=== PATIENT | female | born 1965 | race Caucasian/White ===

== ENCOUNTER 2024-01-10 00:31 | Day surgery (SDC) | payer OTHER, BC, SELFPAY ==
[2024-01-08 14:03] VITALS: BMI 37.5
--- NOTE | 2024-01-08 14:10 | PC.NURSE ---
Report to the Outpatient Waiting Room, entrance under the green pavilion located off [facility], at time 1030 on date 01/10/24. Planned Procedure Time: 1230. Time changes happen often and if your time is changed the preop area will call you the afternoon before. - You and your visitor will be asked to self-screen and do not enter if you have any COVID symptoms. - A mask is optional within the hospital at this time. Patients may have clear liquids (water, carbonated beverages, clear teas, apple juice) until 3 hours prior to surgery with a maximum of 20 ounces. - No food from midnight until time of surgery Take the following medications with a SIP of water the morning of surgery: LEVOTHYROXINE DO NOT STOP ANY OF YOUR OTHER PRESCRIPTION MEDICATIONS PRIOR TO SURGERY ?EXCEPT THE FOLLOWING Medications to discontinue per physician: TORADOL Date to take last dose: PER DR. BURTON Please no make-up, nail thai, hairspray, perfume, deodorant, or body powder the day of surgery. No jewelry (including any body piercings) or valuables the day of surgery, leave them at home. Please take a shower or bath the night before, or the morning of, surgery with an antibacterial soap. Wear comfortable, loose fitting clothing. - Jewelry must be removed prior to entering the operating room. Rings and piercings that are not removed may be cut off. - The hospital will not accept responsibility for valuables. - Please leave all valuables, including medications, at home the day of surgery. If you are going home after surgery, a licensed truck driver must drive you home. - NO public transportation without another adult if you receive anesthesia. - We recommend that an adult stay with you for 24 hours following discharge. - We also recommend that you do not drive, make important decision, drink alcoholic beverages, or take any drugs that were not prescribed by your health care provider for at least 24 hours after your discharge time. Follow any additional instructions given to you from your surgeon. If you or anyone in your household have experienced Covid symptoms in the past week, please notify your surgeon or the nurse liaison at the phone number below for possible testing. Telephone instructions given to PT - TRACY and asked if any additional questions and then verbalized understanding. Patient advised to call surgeon office or pre surgery nurse liaison [phone] if any additional questions.
[2024-01-10] VITALS (7 sets, daily range): BP systolic 106–136; BP diastolic 69–99; PULSE 65–77; RESP 10–16; TEMP 36.2–36.6; O2SAT 99–100
--- NOTE | ~2024-01-10 | XR_ITS ---
XR retrograde pyelogram RT Indication: Right stone extraction TECHNIQUE: Fluoroscopy used during right stone extraction performed by [Petar Marcelo MD] o n 01/10/2024. 40 seconds of fluoroscopy time with 56 fluoroscopic images captured. FINDINGS: Correlate with procedure note. IMPRESSION: Fluoroscopy used during right stone extraction. Please refer to procedural note. Reviewed, dictated and finalized at location A. IMPRESSION: Fluoroscopy used during right stone extraction. Please refer to pro cedural note.
--- NOTE | 2024-01-10 06:29 | WPDHPUPDATE1 ---
History and Physical Update Update Date/Time: 01/10/24 06:29 History and Physical has been reviewed, including an updated exam of the patient. There are NO changes in the patient's condition. Risks, benefits, and alternatives have been discussed and questions answered. Patient agrees to proceed with procedure.
--- NOTE | 2024-01-10 10:59 | ECG_ITS ---
SEE SCANNED COPY FOR CONFIRMED REPORT MTDD
[2024-01-10] MEDS: LACTATED RINGERS 1,000 ML 30 ML IV CONT ×2 (11:12→13:37)
--- NOTE | 2024-01-10 11:21 | P.PNAN_ITS ---
Anes - Initial Pre Proc Eval Procedure: Operation Date: 01/10/24 12:30 Proposed Procedures p Cystoscopy, Right Ureteroscopy, Right Stone Extraction, Possible Right Retrograde Pyelogram, Possible Right Stent Placement, Possible Holmium Laser Lithotripsy - Petar Marcelo MD Date/Time: 01/10/24 11:21 Surgeon: Petar Marcelo MD Pre Op Diagnosis: Right Ureteral Stone Patient Data Age: 58 Gender: F Height: 1.63 m Weight: 99 kg Last Vital Signs Temp 97.2 F L 01/10/24 11:06 Pulse 77 01/10/24 11:06 Resp 14 01/10/24 11:06 BP 136/75 01/10/24 11:06 Pulse Ox 99 01/10/24 11:06 O2 Del Method Room Air 01/10/24 11:06 Allergies Allergy/AdvReac Type Severity Reaction Status Date / Time hydrocodone AdvReac Nausea Verified 01/10/24 11:13 oxycodone AdvReac Nausea Verified 01/10/24 11:13 Home Medications Medication Instructions Recorded Confirmed Type ketorolac 10 mg tablet 10 mg PO PRN PRN Pain 01/08/24 01/08/24 History levothyroxine 25 mcg tablet 25 mcg PO DAILY 01/08/24 01/10/24 History lisinopril 10 mg tablet 10 mg PO DAILY 01/08/24 01/08/24 History oxybutynin chloride 5 mg 5 mg PO DAILY 01/08/24 01/08/24 History tablet,extended release 24 hr tamsulosin 0.4 mg capsule 0.4 mg PO DAILY 01/08/24 01/08/24 History tirzepatide (weight loss) 5 mg/0.5 5 mg subcut WEEKLY 01/08/24 01/08/24 History mL subcutaneous pen injector (Zepbound) Patient hx anesthesia problems: none Family hx anesthesia problems: none Results Review: All pre-operative results and documents have been reviewed as part of the pre- operative evaluation. [facility] Family History Family History (Updated 07/10/16 @ 15:16 by DOCTOR UNKNOWN) Sibling Family history of pancreatic cancer Father Family history of lung cancer Social History Social History Smoking status: Never smoker Alcohol intake: current Alcohol use details: VERY RARE Substance use: never Substance use type: does not use Living arrangements: with family Spiritual care concerns: No Anes - Eval Final PreProcedure Day of Procedure 01/10/24 11:21 Patient weight: obese Heart: regular rate and rhythm Lungs: clear to auscultation Airway: Mallampati scale class II and special considerations (L upper tooth missing, R lower tooth missing. ) Neurological: alert and oriented Last oral intake: >/= 8 hours ASA classification: II Emergent: no Anesthetic plan: proceed Anesthesia type and monitoring: general LMA and standard monitoring Results Review: All pre-operative results and documents have been reviewed as part of the pre- operative evaluation. Pt has been off her GLP 1 for 8 days, no N/V, retching or early satiety reported. Informed Consent: The patient's anesthetic plan and its attendant risks and benefits were discussed with the patient/family/POA. Questions were solicited and answers provided to the satisfaction of the patient/family/POA.
--- NOTE | 2024-01-10 12:48 | W.PM.PROC2 ---
Procedure Note - Detailed Date of Procedure 01/10/24 Pre-op Diagnosis Right Ureteral Stone Post-op Diagnosis Other ( Right ureteral and right kidney stone) Procedure Performed Cystoscopy, right ureteroscopy with stone extraction, right retrograde pyelogram Surgeon Petar Marcelo MD Anesthesia General Description of Procedure patient is brought to the operative suite where she has prepped draped in routine sterile fashion while in dorsal lithotomy position after the uneventful induction of a general anesthetic. Cystoscopy was undertaken with a 19 F rigid cystoscope. Bladder neck and urethra endoscopically normal. Bladder mucosa is normal. There was no intravesical foreign body or neoplasm. A 0.035 in glidewire was advanced into her right renal pelvis and the distal ureter was dilated with an 8 F 10 F dilator. With ureteroscopy find any stones in her right ureter but there were several fragments in the bladder suggesting that the stone fractured with spontaneous passage. I removed the fragments from her bladder. I then performed flexible ureteroscopy, did a retrograde pyelogram to ensure inspection of all calices and found the 3 mm stone in her right kidney. That stone was extracted with a 1.9 F disposable stone makes it with these. Because of the ease of this manipulation I opted not to place a ureteral stent. Drains No Packing No Pathology Yes Complications No immediate complications Condition Stable
[2024-01-10] MEDS: KETOROLAC 30 MG/ML VIAL (*BKC) IV PUSH (13:21)
--- NOTE | 2024-01-10 13:26 | SUR.PHASEI ---
1255: Melodie CHUNG'Kashif BURTON IN PACU FOR TORADOL 30MG IVP X1 DOSE TO BE GIVEN IN PACU. ORDER ENTERED BY RN @ 1320 AND ADMIN IN PACU TO PT ORDERED.
== END 2024-01-10 14:43 | disposition home or self-care (01) ==
PROVIDERS: PCP Nurse Practitioner; Visit Provider Urology
PROC: (CPT 52352; principal; 2024-01-10 12:30)
DX: N20.2 Calculus of kidney with calculus of ureter (principal); I10 Essential (primary) hypertension; E66.9 Obesity, unspecified; Z68.37 Body mass index [BMI] 37.0-37.9, adult; Z79.85 Long-term (current) use of injectable non-insulin antidiabetic drugs; Z80.1 Family history of malignant neoplasm of trachea, bronchus and lung; Z80.0 Family history of malignant neoplasm of digestive organs
CPT/HCPCS: 52352; 74420; 82365; 88300; 93005; C1769; J0690; J1100; J1885; J2405; J2704; J7120; Q9966

== ENCOUNTER 2025-09-04 14:46 | Outpatient (CLI) | payer OTHER, BC, SELFPAY ==
--- NOTE | 2025-09-04 14:53 | ECG_ITS ---
Test Date: 2025-09-04 15:00:54 Measurements Intervals [place] Rate: 85 P: 187 HI: 132 QRS: 217 QRSD: 80 T: 182 QT: 342 QTc: 407 Interpretive Statements SINUS RHYTHM LIMB LEAD REVERSAL LOW QRS VOLTAGE IN PRECORDIAL LEADS BORDERLINE R WAVE PROGRESSION, ANTERIOR LEADS BORDERLINE T WAVE ABNORMALITY- INFERIOR LEADS BASELINE WANDER- V4-V5 BORDERLINE ECG No previous ECG available for comparison Electronically Signed On 09-04-2025 15:15:36 IMPROVEMENT AUDITOR by Vj Egan D.O.
== END 2025-09-04 14:47 | disposition home or self-care (01) ==
PROVIDERS: PCP Nurse Practitioner; Visit Provider Anesthesiology
DX: I10 Essential (primary) hypertension (principal); Z01.818 Encounter for other preprocedural examination; R94.31 Abnormal electrocardiogram [ECG] [EKG]
CPT/HCPCS: 93005

== ENCOUNTER 2025-09-08 03:31 | Day surgery (SDC) | payer OTHER, BC, SELFPAY ==
[2025-09-03 08:10] VITALS: BMI 38.6
--- NOTE | 2025-09-03 08:18 | SUR.PREOP ---
[facility] has started construction of its new state of the art ER which will open Spring 2026. With this, we anticipate parking may be a challenge for some our surgical patients and families. Parking spaces are limited but are available for all Surgical, obstetrics, and ER patients sharing this lot. If you arrive and find you are having a hard time finding a parking space, please note that we understand the challenges, please drive around the hospital and park near Hospital Entrance 1. When you enter this entrance, you can ask a volunteer to direct or take you back to the surgical waiting area to check in. We appreciate everyone?s understanding of these expected challenges while we build for your future. Report to the Outpatient Waiting Room, entrance under the green pavilion located off [address], at time 7:30a.m. on date 09/08/2025. Planned Procedure Time: 9:30a.m.? Time changes happen often and if your time is changed the preop area will call you the afternoon before. - You and your visitor will be asked to self-screen and do not enter if you have any COVID symptoms. Please call surgeon if you need to reschedule. - A mask is optional within the hospital at this time. Patients may have clear liquids (water, carbonated beverages, clear teas, apple juice) until 3 hours prior to surgery with a maximum of 20 ounces. - No food from midnight until time of surgery and no smoking, or chewing tobacco (or any form of nicotine). No chewing gum, candy or mints. Take only the following medications with a SIP of water on the morning of surgery: NONE DO NOT STOP ANY OF YOUR OTHER PRESCRIPTION MEDICATIONS PRIOR TO SURGERY EXCEPT THE FOLLOWING Hold all vitamins and supplements for 3 days per anesthesiologist. Medications to discontinue per physician: NONE Date to take last dose: N/A Please no make-up, nail greenlandic, hairspray, perfume, deodorant, or body powder the day of surgery.? No jewelry (including any body piercings) or valuables the day of surgery, leave them at home.? Please take a shower or bath the night before, or the morning of, surgery with an antibacterial soap.? Wear comfortable, loose fitting clothing.? Children are encouraged to wear pajamas. - Jewelry must be removed prior to entering the operating room.? Rings and piercings that are not removed may be cut off. - The hospital will not accept responsibility for valuables.? - Please leave all valuables, including medications, at home the day of surgery. If you are going home after surgery, a licensed garbage truck driver must drive you home.? - NO public transportation without another adult if you receive anesthesia. - We recommend that an adult stay with you for 24 hours following discharge. - We also recommend that you do not drive, make important decision, drink alcoholic beverages, or take any drugs that were not prescribed by your health care provider for at least 24 hours after your discharge time. For Pediatric surgeries, we recommend two adults accompany the child home. Follow any additional instructions given to you from your surgeon. Telephone instructions given to Paz Engle and asked if any additional questions and then verbalized understanding. Patient advised to call surgeon office or pre surgery nurse liaison [phone] if any additional questions.
[2025-09-08] VITALS (8 sets, daily range): BP systolic 113–138; BP diastolic 76–88; PULSE 63–92; RESP 12–20; TEMP 36.2–36.3; O2SAT 96–100; BMI 39.6
--- NOTE | ~2025-09-08 | XR_ITS ---
EXAM/PROCEDURE: XR retrograde pyelo w/stent BI HISTORY: BILATERAL RETRO/STENT COMPARISON: None available. TECHNIQUE: Fluoroscopic spot images for pain service. Fluoroscopy time: 42.1 seconds Dose: 32.10 mGy REPORT: Bilateral ureteral stents present with retrograde pyelography performed. IMPRESSION: Fluoroscopic guided imaging. No radiologist present. See also procedure/operative notes for complete evaluation. Reviewed, dictated and finalized at location A. ANICAL MAINTENANCE IMPRESSION: Fluoroscopic guided imaging. No radiologist present. See also proce dure/operative notes for complete evaluation.
--- OUTSIDE RECORDS SUMMARY | 2025-09-08 03:36 | XMS_ITS | Clinical Summary ---
Author Organization [facility] Address [address] [place] [address] Care Team Providers Care Gasoline Tractor Operator Name Role Phone Russell Bianchi MD Primary Care Provider Source Comments [facility],non-owned Affiliates and Associated Physician Practices is amultiple site organization consisting of ambulatory clinics and hospital sitesin [place], [place], [place] and [place]. This disclosure is being madepursuant to the Care Everywhere program and may not contain all information available regarding this patient. 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 Gender Identity Not on file Sexual Orientation Not on file Plan of Treatment Health Maintenance Due Date Last Done Comments COLOGUARD (AGES 45-75) - COL ON CA SCREENING 1963 COLON MONITORING 1963 COLONOSCOPY - COLON CA SCREENING 1963 CT COLONOGRAPHY - COLON CA SCREENING 1963 Colorectal Cancer Screening 1963 FIT - COLON CA SCREENING 1963 FLEX SIG - COLON CA SCREENING 1963 LIPID TESTING 1963 MAMMOGRAM 1963 HIV SCREENING 1978 HEPATITIS C SCREENING 03/16/1981 DTAP/TDAP/TD VACCINES (1 - Tdap) 1982 Cervical Cancer Screening 1984 PAP SMEAR 1984 PAP with HPV 1993 PNEUMOCOCCAL VACCINE 50+ (1 of 1 - PCV) 2013 ZOSTER VACCINE (1 of 2) 2013 DEPRESSION SCREENING 10/01/2024 COVID-19 VACCINE ( - 2024-2 6 season) 2025 INFLUENZA VACCINE (#1) 2025 Respiratory Syncytial Virus (RSV) Vaccine Pt: or over 60 yrs (1 - 1-dose 75+ series) 2038 HEPATITIS B VACCINE Aged Out No longe r eligible based on patient's age to complete this topic HIB VACCINE Aged Out No longer eligi ble based on patient's age to complete this topic HPV VACCINE Aged Out No longer eligi ble based on patient's age to complete this topic MENINGOCOCCAL (Group B) VACC INE SHARED DECISION-MAKING Aged Out No longer eligibl e based on patient's age to complete this topic MENINGOCOCCAL GROUPS A/C/Y/W VACCINE Aged Out No longer eligible b ased on patient's age to complete this topic Insurance [facility], [facility] * Guarantor: PAZ RAMIREZ Account Type Relation to Patient Date of Phone Billing Address Personal/Family Spouse [facility] * Guarantor: JAMESPAZ Account Type Relation to Patient Date of Phone Billing Address Personal/Family Spouse [facility] Member Subscriber Plan / Payer (Ef fective for All Dates) Name:Paz Ramirez Cole Member ID:Not on file Relation to Subscriber:Self Name:Paz Ramirez Subscriber ID:Not on file Payer ID:Not on file Type:PPO Address: [facility] [id number] [place] [id number] [place] [address] Care Teams Gasoline Tractor Operator Relationship Specialty Start Date End Date Russell Bianchi MD [address] [place] [address] PCP - General 07/07/21
--- OUTSIDE RECORDS SUMMARY | 2025-09-08 03:36 | XMS_ITS | Encounter Summary ---
Author Organization [facility] Address [address] [place] [address] Care Team Providers Care Clinical Program Director Name Role Phone Russell Bianchi MD Primary Care Provider [phone] Encounter Details Date Type Department Care Team (Late st Contact Info) Description 08/19/2024 Lab Requisition [facility]erm[facility] Lab [address] [place] [address] Janice Gomez DO [address] [facility] [address] [place] [address] Social History Tobacco Use Types Packs/Day Years Used Date Smoking Tobacco: Never Assessed Comments Unknown Sex and Gender Information Value Date Recorded Sex Assigned at Not on file Legal 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 Gender Identity Not on file Sexual Orientation Not on file documented as of this encounter Plan of Treatment Not on file documented as of this encounter Procedures Procedure Name Priority Date/Time Associated Diagnosis Comments DERMATOPATHOLOGY Routine 08/19/2024 2:20 PM PLUMBING INSTRUCTOR documented in this encounter Results * DERMATOPATHOLOGY (08/19/2024 2:20 PM PLUMBING INSTRUCTOR) Case Report Dermatopathology Report Case: [id number] Authorizing Provider: Janice Gomez DO Collected: 08/19/2024 02:20 PM Ordering Location: [facility] - Received: 08/20/2024 10:58 AM DermPath Lab Pathologist: Arely Drew MD Specimen: Skin, right cheek 4 5:14 PM PLUMBING INSTRUCTOR DERMATOPATHOLOGY LABORATORY Final Diagnosis Specimen A. SKIN, right cheek: ANGIOFIBROMA (FIBROUS PAPULE) (D21.0) ACTINIC KERATOSIS, FOCAL CHANGES(L57.0) (see microscopic description) 4 5:14 PM [facility] at [address] PLUMBING INSTRUCTOR Clinical History R/O BCC 4 5:14 PM [facility]ORY Gross Description Specimen A: Received is one formalin filled container labeled with the patient's name and designated right cheek. The specimen consists of a shave biopsy measuring 2x2x1 mm. Jar 0. 4 5:14 PM [facility] DER[facility]ORY Microscopic Description Specimen A. SKIN, right cheek: This dome-shaped lesion contains dilated blood vessels, coarse collagen bundles, and stellate fibroblasts. There is also focal parakeratosis and the lower half of the epidermis shows disorderly maturation of keratinocytes with nuclear pleomorphism. The hematoxylin and eosin stain is reviewed; immunohistochemical stains are performed to further characterize this process. The dermal spindle cells are positive for Factor XIIIa and negative for SOX10. 5:14 PM [facility] DER[facility] LAB[facility]ATORY Disclaimer An external and internal positive and negative controls are appropriate for the histochemical, immunohistochemical and immunofluorescence stain(s) in this case (if any), except where stated explicitly. The performance characteristics of the stain(s) cited in this report were developed and its performance characteristic determined by the Dermatopathology Laboratory at [facility], directed by Dr. Reji Rice. These tests need not be, and therefore are not, approved by the [place] Food and Drug Administration. The tests are used for clinical purposes. Billing Codes Specimen Charges Stain Charges 92435 1 03133 [id number] 1 1 4 5:14 PM [facility] DER[facility] LAB[facility]ATORY Embedded Images 4 5:14 PM [facility] D[facility]ORY Pathology/Cytolo gy TISSUE SPECIMEN FROM SKIN / Unknown 08/19/2024 2:20 PM PLUMBING INSTRUCTOR 08/20/2024 10:58 AM PLUMBING INSTRUCTOR us Janice Gomez DO LAB - PATHOLOGY/CYTOLOGY ORDERABLES Final Result DERMATOPATHOLOGY LABORATORY [facility] Department of Dermatology [facility] Specialized [facility] [phone] documented in this encounter Visit Diagnoses Not on filedocumented in this encounter Care Teams Clinical Program Director Relationship Specialty Start Date End Date Russell Bianchi MD [address] [place] [address] PCP - General 07/07/21 documented as of this encounter
--- NOTE | 2025-09-08 08:31 | WPDANESEPPF ---
Anes - Initial Pre Proc Eval Procedure: Operation Date: 09/08/25 09:30 Proposed Procedures p Cystoscopy Bilateral Retrograde Pyelogram, Bilateral Ureteral Stent Placement - Shady Colby MD Date/Time: 09/08/25 08:31 Surgeon: Shady Colby MD Pre Op Diagnosis: Calculus of kidney Patient Data Age: 60 Gender: F Height: 1.63 m Weight: 104.8 kg Last Vital Signs Temp 36.2 C L 09/08/25 07:30 Pulse 92 09/08/25 07:30 BP 138/88 09/08/25 07:30 Pulse Ox 100 09/08/25 07:30 O2 Del Method Room Air 09/08/25 07:30 Allergies Allergy/AdvReac Type Severity Reaction Status Date / Time hydrocodone AdvReac Nausea Verified 09/08/25 07:50 oxycodone AdvReac Nausea Verified 09/08/25 07:50 Home Medications ?Medication ?Instructions ?Recorded ?Confirmed ?Type lisinopril 10 mg tablet 5 mg PO DAILY 01/08/24 09/03/25 History oxybutynin chloride 5 mg 5 mg PO DAILY 01/08/24 09/03/25 History tablet,extended release 24 hr Patient hx anesthesia problems: none Family hx anesthesia problems: none Results Review: All pre-operative results and documents have been reviewed as part of the pre-operative evaluation. [facility] Past Medical History Medical History (Updated 09/08/25 @ 08:30 by Mamadou Lance DO) Hypertension AAA (abdominal aortic aneurysm) Surgical History Surgical History (Updated 09/08/25 @ 08:30 by Mamadou Lance DO) History of hysterectomy History of total bilateral knee replacement Family History Family History (Updated 07/10/16 @ 15:16 by DOCTOR UNKNOWN) Sibling Family history of pancreatic cancer Father Family history of lung cancer Social History Social History Smoking status: Never smoker Alcohol intake: current Alcohol use details: VERY RARE Substance use: never Substance use type: does not use Living arrangements: with family Spiritual care concerns: No Anes - Eval Final PreProcedure Day of Procedure 09/08/25 08:31 Patient weight: obese Heart: regular rate and rhythm Lungs: clear to auscultation Airway: Mallampati scale class II Neurological: alert and oriented Last oral intake: >/= 8 hours ASA classification: III Emergent: no Anesthetic plan: proceed Anesthesia type and monitoring: general LMA and standard monitoring Results Review: All pre-operative results and documents have been reviewed as part of the pre-operative evaluation. Informed Consent: The patient's anesthetic plan and its attendant risks and benefits were discussed with the patient/family/POA. Questions were solicited and answers provided to the satisfaction of the patient/family/POA.
--- NOTE | 2025-09-08 09:08 | WPDHPUPDATE1 ---
History and Physical Update Update Date/Time: 09/08/25 09:08 History and Physical has been reviewed, including an updated exam of the patient. There are NO changes in the patient's condition. Risks, benefits, and alternatives have been discussed and questions answered. Patient agrees to proceed with procedure.
--- NOTE | 2025-09-08 09:08 | PM.HPGS ---
History of Present Illness History of Present Illness Consent: Risks, benefits, and alternatives have been discussed and questions answered. Patient agrees to proceed with procedure. Chief complaint: Calculus of kidney Narrative: Paz Engle is a 60 year old female with history of urolithiasis who was found on recent imaging to have significant kidney stone burden bilaterally. She had undergone a discussion of management options in the Urology Clinic and had elected to proceed with a staged endoscopic approach to treat her kidney stones. She presents today for bilateral ureteral stent placement with plans to follow-up in the upcoming weeks for definitive endoscopic management of her kidney stones. The patient denies any changes past her baseline is ready for the procedure today. Review of Systems Review of Systems: Constitutional: No fevers or chills Eyes: No changes in vision HENT: No hearing loss Cardiovascular: No chest pain or palpitations Respiratory: No shortness of breath, cough, wheezing GI: No abdominal pain, nausea, or vomiting : No dysuria or difficulty urinating Heme: No easy bruising or bleeding Skin: No rash or itching MSK: No myalgias or joint pain Psych: No hallucinations Neuro: No lateralized numbness or tingling PMFSH Past Medical History Medical History (Updated 09/08/25 @ 09:10 by Shady Colby MD) Hypertension AAA (abdominal aortic aneurysm) Surgical History Surgical History (Updated 09/08/25 @ 08:30 by Mamadou Lance DO) History of hysterectomy History of total bilateral knee replacement Family History Family History (Updated 07/10/16 @ 15:16 by DOCTOR UNKNOWN) Sibling Family history of pancreatic cancer Father Family history of lung cancer Social History Social History Smoking status: Never smoker Alcohol intake: current Alcohol use details: VERY RARE Substance use: never Substance use type: does not use Living arrangements: with family Spiritual care concerns: No Meds Home Medications and Allergies Home Medications ?Medication ?Instructions ?Recorded ?Confirmed ?Type lisinopril 10 mg tablet 5 mg PO DAILY 01/08/24 09/03/25 History oxybutynin chloride 5 mg 5 mg PO DAILY 01/08/24 09/03/25 History tablet,extended release 24 hr Allergies Allergy/AdvReac Type Severity Reaction Status Date / Time hydrocodone AdvReac Nausea Verified 09/08/25 07:50 oxycodone AdvReac Nausea Verified 09/08/25 07:50 Vital Signs Vital Signs - 24 hr 09/08/25 07:30 Temperature 36.2 C L Pulse Rate 92 Blood Pressure 138/88 Pulse Oximetry 100 Oxygen Delivery Room Air Exam Narrative: General: Alert, no acute distress Head: Normocephalic, atraumatic Eyes: Extraocular movements intact Neck: No JVD, trachea midline Respiratory: Symmetric chest rise, nonlabored breathing on room air CV: Normal rate, adequate peripheral perfusion Abdomen: Soft, nontender, nondistended Skin: Warm/dry Extremities: No peripheral edema, no cyanosis Neuro: No focal deficits Psych: Answers questions appropriately, appropriate mood Assessment and Plan Assessment and plan (1) Nephrolithiasis: Code(s): N20.0 - Calculus of kidney Status: Acute Assessment and Plan: 60yF with large kidney stone burden in both kidneys - To OR for cystoscopy, bilateral retrograde pyelogram, bilateral ureteral stent placement - Risks, benefits, alternatives reviewed with the patient. The patient is amenable to proceed. - Anticipate discharge home thereafter
[2025-09-08] MEDS: ceFAZolin 2 GM in SODIUM CHLORIDE 0.9% IV 50 ML 100 ML IVPB (09:16)
--- NOTE | 2025-09-08 09:41 | P.OP_ITS ---
Procedure Note - Detailed Date of Procedure 09/08/25 Pre-op Diagnosis bilateral nephrolithiasis Post-op Diagnosis Same Procedure Performed 1. Cystoscopy 2. Bilateral retrograde pyelograms with intraoperative interpretation 3. Bilateral ureteral stent placement Surgeon Shady Colby MD Anesthesia General Findings 1. Cystourethroscopy revealed a cystocele with bilateral orthotopic ureteral orifices. There were no suspicious lesions, tumors, active bleeding, or stones in the lower urinary tract 2. Left retrograde pyelogram using a 50 50 mixture of contrast and saline showed a crisp well-delineated collecting system with scattered filling defects in the kidney without contrast extravasation 3. Right retrograde pyelogram using a 50 50 mixture of contrast and saline showed a crisp well-delineated collecting system with scattered filling defects in the kidney without contrast extravasation 4. Successful bilateral ureteral stent placement Description of Procedure After informed consent was obtained, the patient was brought back to the operat ing theatre and placed in the supine position on the operating table. Pre- operative antibiotics were confirmed to have been administered. Anesthesia was induced. The patient was moved into the dorsal lithotomy position and prepped and draped in the standard sterile fashion for an endoscopic case. All pressure points were padded. Bilateral sequential compression devices were on and noted to be functioning. A formal timeout was performed with Dr. Colby in attendance to confirm the correct patient, site/laterality, and procedure and all were in agreement to proceed. To begin with, I atraumatically advanced a lubricated 22-Trinidadian rigid cystoscope transurethrally into the patient's bladder. Pancystoscopy was performed with findings as noted above. Attention was then turned to the left ureteral orifice, which was gently cannulated with a Sensor wire which was advanced up to the level of the left distal ureter under fluoroscopy. Over top of the wire, a 5- Trinidadian open ended catheter was advanced to the level of the distal ureter. The wire was removed keeping the open-ended catheter in place and a left retrograde pyelogram was performed using a 50:50 mixture of saline and contrast with findings as noted above. The wire was then replaced through the open-ended catheter and was advanced up to the level of the left kidney under fluoroscopy. Afterwards, the open-ended catheter was removed in Seldinger fashion, leaving the wire in place. Over top of the wire, a 6-Trinidadian x 24 cm JJ stent was advanced and the pusher was used to deploy the stent in place, confirming an adequate proximal curl in the left kidney under fluoroscopy and a good distal curl in the bladder under both fluoroscopic and direct cystoscopic vision. Next, I performed a right-sided retrograde pyelogram and right ureteral stent placement in the exact same fashion as the left hand side. Please see above for right-sided intraoperative retrograde pyelogram findings. The patient's bladder was then emptied and the cystoscope was removed, essentially concluding the case. At the conclusion of the case all sponge, instrument, and sharp counts were correct x 2. The patient was then awoken from anesthesia and taken to the recovery room in stable condition. The patient tolerated the procedure well and there were no immediate complications noted. disposition: The patient will be monitored in the PACU and discharge home was clearly PACU protocol. She will follow-up in the upcoming weeks for definitive endoscopic treatment of her kidney stones. Patient's was provided with an update following the procedure and all questions were answered to his satisfaction at the conclusion of our discussion.
[2025-09-08] MEDS: LACTATED RINGERS 1,000 ML 30 ML IV CONT (09:45)
[2025-09-08] MEDS: traMADol HCL (*CRX) 50 MG TABLET PO (10:52)
== END 2025-09-08 11:24 | disposition home or self-care (01) ==
PROVIDERS: PCP Nurse Practitioner; Visit Provider Urology
PROC: (CPT 52352; principal; 2025-09-08 09:30)
DX: N20.0 Calculus of kidney (principal); N81.10 Cystocele, unspecified; I10 Essential (primary) hypertension; E66.9 Obesity, unspecified; Z68.39 Body mass index [BMI] 39.0-39.9, adult; Z98.890 Other specified postprocedural states; Z86.79 Personal history of other diseases of the circulatory system; Z80.1 Family history of malignant neoplasm of trachea, bronchus and lung; Z80.0 Family history of malignant neoplasm of digestive organs
CPT/HCPCS: 52332; 74420; J0690; A9270; C1758; C1769; C2617; J1100; J2003; J2250; J2405; J2704; J3010; J7120; Q9966

== ENCOUNTER 2025-09-29 01:10 | Day surgery (SDC) | payer OTHER, BC, SELFPAY ==
[2025-09-22 08:00] VITALS: BMI 38.6
--- NOTE | 2025-09-22 08:15 | PC.NURSE ---
[facility] has started construction of its new state of the art ER which will open Spring 2026. With this, we anticipate parking may be a challenge for some our surgical patients and families. Parking spaces are limited but are available for all Surgical, obstetrics, and ER patients sharing this lot. If you arrive and find you are having a hard time finding a parking space, please note that we understand the challenges, please drive around the hospital and park near Hospital Entrance 1. When you enter this entrance, you can ask a volunteer to direct or take you back to the surgical waiting area to check in. We appreciate everyone?s understanding of these expected challenges while we build for your future. Report to the Outpatient Waiting Room, entrance under the green pavilion located off [address], at time 0900 on date 09/29/25. Planned Procedure Time: 1100.? Time changes happen often and if your time is changed the preop area will call you the afternoon before. - You and your visitor will be asked to self-screen and do not enter if you have any COVID symptoms. Please call surgeon if you need to reschedule. - A mask is optional within the hospital at this time. Patients may have clear liquids (water, carbonated beverages, clear teas, apple juice) until 3 hours prior to surgery with a maximum of 20 ounces. - No food from midnight until time of surgery and no smoking, or chewing tobacco (or any form of nicotine). No chewing gum, candy or mints. - Infants may have breast milk until 4 hours before surgery, formula 6 hours prior to surgery. - Children will be allowed to drink immediately following surgery.? If applicable, please bring a bottle or sippy cup to assist with drinking. Juice, water, soda, and popsicles are readily available.? For infants on formula, please bring formula the day of surgery.? Pacifiers are allowed. Take only the following medications with a SIP of water on the morning of surgery: MAY TAKE PYRIDIUM IF SHE WANTS DO NOT STOP ANY OF YOUR OTHER PRESCRIPTION MEDICATIONS PRIOR TO SURGERY EXCEPT THE FOLLOWING Hold all vitamins and supplements for 3 days per anesthesiologist. Medications to discontinue per physician N/A Date to take last dose N/A Please no make-up, nail gambian, hairspray, perfume, deodorant, or body powder the day of surgery.? No jewelry (including any body piercings) or valuables the day of surgery, leave them at home.? Please take a shower or bath the night before, or the morning of, surgery with an antibacterial soap.? Wear comfortable, loose fitting clothing.? Children are encouraged to wear pajamas. - Jewelry must be removed prior to entering the operating room.? Rings and piercings that are not removed may be cut off. - The hospital will not accept responsibility for valuables.? - Please leave all valuables, including medications, at home the day of surgery. If you are going home after surgery, a licensed class a truck driver must drive you home.? - NO public transportation without another adult if you receive anesthesia. - We recommend that an adult stay with you for 24 hours following discharge. - We also recommend that you do not drive, make important decision, drink alcoholic beverages, or take any drugs that were not prescribed by your health care provider for at least 24 hours after your discharge time. For Pediatric surgeries, we recommend two adults accompany the child home. Follow any additional instructions given to you from your surgeon. Telephone instructions given to TRACY RAMIREZ and asked if any additional questions and then verbalized understanding. Patient advised to call surgeon office or pre surgery nurse liaison [phone] if any additional questions.
[2025-09-29] VITALS (9 sets, daily range): BP systolic 123–158; BP diastolic 85–103; PULSE 74–97; RESP 12–17; TEMP 36.2; O2SAT 94–100
--- NOTE | ~2025-09-29 | XR_ITS ---
EXAMINATION: XR retrograde pyelo w/stent BI DATE: 09/29/2025 12:03 INDICATION: Bilateral internal ureteral stent placement TECHNIQUE: Fluoroscopic images from a bilateral internal ureteral stent placement are submitted for review. 64 seconds of fluoroscopy time. FINDINGS: There are bilateral double-J internal ureteral stent projecting in expected position, with proximal [place] loop at the level of the renal pelvis and distal loop in the pelvis within the bladder lumen. IMPRESSION: 1. Bilateral internal ureteral stent placement. Please refer to real-time procedural findings for details. Reviewed, dictated and finalized at location O. [facility] IMPRESSION: 1. Bilateral internal ureteral stent placement. Please refer to real-time pro cedural findings for details.
--- OUTSIDE RECORDS SUMMARY | 2025-09-29 01:16 | XMS_ITS | Encounter Summary ---
Author Organization [facility] Address [facility] [place] [address] Care Team Providers Care Four Slide Operator Name Role Phone Gaurav Arango MD Unavailable [phone] Jacinta Del Rosario Primary Care Provider [phone] Mauricio Wood MD Unavailable [phone] Encounter Details Date Type Department Care Team (Late st Contact Info) Description 06/21/2022 Prêt d'Uniont Message Enc [facility] [address] [place] [address] Manoj Merlos MD [address] [place] [address] ANIVAL SLADE [id number] Urine culture Social History Tobacco Use Types Packs/Day Years Used Date Smoking Tobacco: Never Smokeless Tobacco: Never Comments:Never Smoked Alcohol Use Standard Drinks/Week Comments Yes 0 (1 standard drink = 0.6 oz pure alcohol) occasionally. less than 1 drink a week PHQ-2 Answer Date Recorded PHQ-2 Score - If the patient scores above 3, please move on to questions 3-9 0 05/25/2022 Comments No Sex and Gender Information Value Date Recorded Sex Assigned at Female 10/14/2024 3:51 PM HEALTH INSURANCE SPECIALIST Legal Sex Female 5:51 PM CDT Gender Identity Female 09/23/2021 9:05 AM HEALTH INSURANCE SPECIALIST Sexual Orientation Straight 09/23/2021 9: 05 AM HEALTH INSURANCE SPECIALIST COVID-19 Exposure Response Date Recorded In the last 10 days, have yo u been in contact with someone who was confirmed or suspected to have Coronavirus/COVID-19? No / Unsure 06/23/2022 10:55 AM CDT documented as of this encounter Functional Status * RETIRED Are you deaf or do you have serious difficulty hearing Answer Date of Assessment Author Status No 12/24/2018 5:26 PM CDT Activ e * RETIRED Are you blind or do you have serious difficulty seeing, even when wearing glasses? Answer Date of Assessment Author Status No 12/24/2018 5:26 PM CDT Activ e * Do you have serious difficulty walking or climbing stairs? Answer Date of Assessment Author Status No 12/24/2018 5:26 PM CDT Jenny Fitch RN Active * Do you have difficulty dressing or bathing? Answer Date of Assessment Author Status No 12/24/2018 5:26 PM CDT Jenny Fitch RN Active * Because of a physical, mental, or emotional condition, do you have difficulty doing errands alone such as visiting a doctor's office or shopping? Answer Date of Assessment Author Status No 12/24/2018 5:26 PM CDT Jenny Fitch RN Active documented as of this encounter Mental Status * Because of a physical, mental, or emotional condition, do you have serious difficulty concentrating, remembering, or making decisions? Answer Entry Date Author Status No 12/24/2018 5:26 PM PACHECOT Jenny Fitch RN Active documented in this encounter Progress Notes * Raven Cotton RN - 06/22/2022 11:57 AM CDT Forwarded to Dr. Merlos review UC results and advise. * Raven Cotton RN - 06/22/2022 11:56 AM CDTFrom: Paz Engle To: Dr. Manoj Merlos Sent: 06/21/2022 8:48 AM CDT Subject: Urine culture I can come in today to do a urine cath if you want me to. You had that first culture back on 06/14 and waited till 06/20 at 4pm to call and let me know to repeat it I could of done it when you got it back then the nurse thought my surgery was 06/29 I said no it's 06/23 the is stent removal she said oh now my surgery may be cancelled I'm hurting . documented in this encounter Plan of Treatment Upcoming Encounters Date Type Department Care Team (Late st Contact Info) Description 11/27/2025 3:30 PM HEALTH INSURANCE SPECIALIST Appointment [facility] [address] [place] [address] Mauricio Wood MD [address] [address] 12/03/2025 2:30 PM HEALTH INSURANCE SPECIALIST Office Visit [facility] [place] [id number] Miryam Pelayo NP [address] [address] documented as of this encounter Visit Diagnoses Not on filedocumented in this encounter Additional Health Concerns Infection Onset Date Last Indicated Resolved Time COVID-19 Rule Out 08/28/2022 08/28/2022 08/28/2022 10:13 AM HEALTH INSURANCE SPECIALIST COVID-19 Rule Out 06/28/2023 06/28/2023 06/28/2023 9:17 AM CDT COVID-19 Rule Out 09/04/2024 09/04/2024 09/04/2024 12:21 PM HEALTH INSURANCE SPECIALIST COVID-19 Rule Out 10/27/2024 10/27/2024 10/27/2024 10:34 AM HEALTH INSURANCE SPECIALIST COVID-19 Rule Out 11/20/2024 11/20/2024 11/20/2024 9:48 AM HEALTH INSURANCE SPECIALIST Respiratory Rule Out 01/28/2025 01/28/2025 025 11:41 AM CDT Respiratory Rule Out 08/24/2025 08/24/2025 025 12:21 PM HEALTH INSURANCE SPECIALIST Assessment Noted Time PHQ-9 Depression Total Score: 0 11/15/19 8:46 AM HEALTH INSURANCE SPECIALIST documented as of this encounter Care Teams Four Slide Operator Relationship Specialty Start Date End Date Jacinta Del Rosario FNP PCP - General Nurse Practitioner Family 07/14/19 Gaurav Arango MD ORTHOPAEDIC SURGERY 12/19/18 Mauricio Wood MD [address] [address] Consulting Physician CARDIOVASCULAR DISEASE 01/05/22 documented as of this encounter
--- OUTSIDE RECORDS SUMMARY | 2025-09-29 01:16 | XMS_ITS | Encounter Summary ---
Author Organization [facility] Address [facility] [place] [address] Care Team Providers Care Tour Agent Name Role Phone Gaurav Arango MD Unavailable [phone] Jacinta Del Rosario TRAIL CONSTRUCTION WORKER Primary Care Provider Mauricio Wood MD Unavailable [phone] Encounter Details Date Type Department Care Team (Late st Contact Info) Description 09/12/2024 aroundthewayt Message [facility] [place] [address] Mauricio Wood MD [address] [address] MRI/IMAGING Social History Tobacco Use Types Packs/Day Years Used Date Smoking Tobacco: Never Smokeless Tobacco: Never Comments:Never Smoked Alcohol Use Standard Drinks/Week Comments Yes 0 (1 standard drink = 0.6 oz pure alcohol) occasionally. less than 1 drink a week PHQ-2 Answer Date Recorded Patient Health Questionnaire-2 Score 0 11/26/2023 Comments No Sex and Gender Information Value Date Recorded Sex Assigned at Female 10/14/2024 3:51 PM EDGE CUTTER Legal Sex Female 5:51 PM CDT Gender Identity Female 09/23/2021 9:05 AM EDGE CUTTER Sexual Orientation Straight 09/23/2021 9: 05 AM EDGE CUTTER documented as of this encounter Functional Status [...] Date Author Status No 12/24/2018 5:26 PM CDT Jenny Fitch RN Active documented in this encounter Plan of Treatment Upcoming Encounters Date Type Department Care Team (Late st Contact Info) Description 11/27/2025 3:30 PM EDGE CUTTER Appointment [facility] [address] [place] [address] Mauricio Wood MD [facility] [address] [place] [address] 12/03/2025 2:30 PM EDGE CUTTER Office Visit [facility] [place] [phone] Miryam Pelayo, RECREATION TECHNICIAN [id number] [place] [address] documented as of this encounter Visit Diagnoses Not on filedocumented in this encounter Additional Health Concerns Infection Onset Date Last Indicated Resolved Time COVID-19 Rule Out 10/27/2024 10/27/2024 10/27/2024 10:34 AM EDGE CUTTER COVID-19 Rule Out 11/20/2024 11/20/2024 11/20/2024 9:48 AM EDGE CUTTER Respiratory Rule Out 01/28/2025 01/28/2025 025 11:41 AM CDT Respiratory Rule Out 08/24/2025 08/24/2025 025 12:21 PM EDGE CUTTER Assessment Noted Time PHQ-9 Depression Total Score: 0 09/15/20 9:53 AM EDGE CUTTER documented as of this encounter Care Teams Tour Agent Relationship Specialty Start Date End Date Jacinta Del Rosario FNP PCP - General Nurse Practitioner Family 07/14/19 Gaurav Arango MD ORTHOPAEDIC SURGERY 12/19/18 Mauricio Wood MD [facility]. [address] [address] Consulting Physician CARDIOVASCULAR DISEASE 01/05/22 documented as of this encounter
--- OUTSIDE RECORDS SUMMARY | 2025-09-29 01:16 | XMS_ITS | Encounter Summary ---
Author Organization [facility] Address [facility] [place] [address] Care Team Providers Care Business Banking Sales Assistant Name Role Phone Gaurav Arango MD Unavailable [phone] Jacinta Del Rosario Primary Care Provider [phone] Mauricio Wood MD Unavailable [phone] Encounter Details Date Type Department Care Team (Latest Contact Info) Description 12/09/2021 Toppr Message Enc [facility] [address] [place], [place] [id number] [place] [address] [place], [place] [phone] Next week's PT appointments Social History Tobacco Use Types Packs/Day Years Used Date Smoking Tobacco: Never Smokeless Tobacco: Never Comments:Provider to litigation counsel Alcohol Use Standard Drinks/Week Comments Yes 0 (1 standard drink = 0.6 oz pure alcohol) occasionally. less than 1 drink a week PHQ-2 Answer Date Recorded PHQ-2 Score - If the patient scores above 3, please move on to questions 3-9 0 11/15/2021 Comments No Sex and Gender Information Value Date Recorded Sex Assigned at Female 10/14/2024 3:51 PM MANAGER MULTICULTURAL Legal Sex Female 5:51 PM CDT Gender Identity Female 09/23/2021 9:05 AM MANAGER MULTICULTURAL Sexual Orientation Straight 09/23/2021 9: 05 AM MANAGER MULTICULTURAL COVID-19 Exposure Response Date Recorded In the last 10 days, have yo u been in contact with someone who was confirmed or suspected to have Coronavirus/COVID-19? No / Unsure 12/12/2021 8:01 AM CDT documented as of this encounter [...] st Contact Info) Description 11/27/2025 3:30 PM MANAGER MULTICULTURAL Appointment [facility] [address] [place] [address] Mauricio Wood MD [facility] [address] [place] [address] 12/03/2025 2:30 PM MANAGER MULTICULTURAL Office Visit [facility] [address] [place] [phone] Miryam Pelayo, REGIONAL LOSS PREVENTION MANAGER [address] [address] documented as of this encounter Visit Diagnoses Not on filedocumented in this encounter Additional Health Concerns Infection Onset Date Last Indicated Resolved Time COVID-19 Rule Out 08/28/2022 08/28/2022 08/28/2022 10:13 AM MANAGER MULTICULTURAL COVID-19 Rule Out 06/28/2023 06/28/2023 06/28/2023 9:17 AM CDT COVID-19 Rule Out 09/04/2024 09/04/2024 09/04/2024 12:21 PM MANAGER MULTICULTURAL COVID-19 Rule Out 10/27/2024 10/27/2024 10/27/2024 10:34 AM MANAGER MULTICULTURAL COVID-19 Rule Out 11/20/2024 11/20/2024 11/20/2024 9:48 AM MANAGER MULTICULTURAL Respiratory Rule Out 01/28/2025 01/28/2025 025 11:41 AM CDT Respiratory Rule Out 08/24/2025 08/24/2025 025 12:21 PM MANAGER MULTICULTURAL Assessment Noted Time PHQ-9 Depression Total Score: 0 11/15/19 8:46 AM MANAGER MULTICULTURAL documented as of this encounter Care Teams Business Banking Sales Assistant Relationship Specialty Start Date End Date Jacinta Del Rosario FNP PCP - General Nurse Practitioner Family 07/14/19 Guarav Arango MD ORTHOPAEDIC SURGERY 12/19/18 Mauricio Wood MD [id number] [place] [address] Consulting Physician CARDIOVASCULAR DISEASE 01/05/22 documented as of this encounter
--- OUTSIDE RECORDS SUMMARY | 2025-09-29 01:16 | XMS_ITS | Encounter Summary ---
Author Organization [facility] Address [facility] [place] [address] Care Team Providers Care Unemployment Claims Adjudicator Name Role Phone Gaurav Arango MD Unavailable [phone] Jacinta Del Rosario Primary Care Provider Mauricio Wood MD Unavailable [phone] Encounter Details Date Type Department Care Team (Late st Contact Info) Description 03/10/[address] [place], [place] [id number] Jacinta Del Rosario FNP [facility] [address] [place], [place] [id number] Social History Tobacco Use Types Packs/Day Years Used Date Smoking Tobacco: Never Smokeless Tobacco: Never Comments:Never Smoked Alcohol Use Standard Drinks/Week Comments Yes 0 (1 standard drink = 0.6 oz pure alcohol) occasionally. less than 1 drink a week PHQ-2 Answer Date Recorded Patient Health Questionnaire-2 Score 0 10/27/2024 Comments No Sex and Gender Information Value Date Recorded Sex Assigned at Female 10/14/2024 3:51 PM TUBER MACHINE OPERATOR HELPER Legal Sex Female 5:51 PM CDT Gender Identity Female 09/23/2021 9:05 AM TUBER MACHINE OPERATOR HELPER Sexual Orientation Straight 09/23/2021 9: 05 AM TUBER MACHINE OPERATOR HELPER documented as of this encounter Functional Status [...] Assessment Author Status No 12/24/2018 5:26 PM PACHECOT Jenny Fitch RN Active * Because of [...] st Contact Info) Description 11/27/2025 3:30 PM TUBER MACHINE OPERATOR HELPER Appointment [facility] [address] [address] Mauricio Wood MD [facility] [address] [place] [address] 12/03/2025 2:30 PM TUBER MACHINE OPERATOR HELPER Office Visit [facility] [address] [place] [phone] Miryam Pelayo NP [facility] [address] [place] [address] documented as of this encounter Visit Diagnoses Not on filedocumented in this encounter Additional Health Concerns Infection Onset Date Last Indicated Resolved Time Respiratory Rule Out 08/24/2025 08/24/2025 025 12:21 PM TUBER MACHINE OPERATOR HELPER Assessment Noted Time PHQ-9 Depression Total Score: 0 09/15/20 22 9:53 AM TUBER MACHINE OPERATOR HELPER documented as of this encounter Care Teams Unemployment Claims Adjudicator Relationship Specialty Start Date End Date Jacinta Del Rosario FNP PCP - General Nurse Practitioner Family 07/14/19 Gaurav Arango MD ORTHOPAEDIC SURGERY 12/19/18 Mauricio Wood MD Three [facility] [address] [place] [address] Consulting Physician CARDIOVASCULAR DISEASE 01/05/22 documented as of this encounter
--- OUTSIDE RECORDS SUMMARY | 2025-09-29 01:16 | XMS_ITS | Clinical Summary ---
Author Organization [facility] Address [address] [place] [address] Care Team Providers Care Mandolin Repairer Name Role Phone Russell Bianchi MD Primary Care Provider Source Comments [facility],non-owned Affiliates and Associated Physician Practices is amultiple site organization consisting of ambulatory clinics and hospital sitesin [place], [place], [place] and [place]. This disclosure is being madepursuant to the Care Everywhere program and may not contain all information available regarding this patient. Last updated 18.[facility] [employer] Social History Tobacco Use Types Packs/Day Years Used Date Smoking Tobacco: Never Assessed Comments Unknown Sex and Gender Information Value Date Recorded Sex Assigned at Not on file Legal Sex Female 7:48 AM DENTAL HYGIENIST MOBILE COORDINATOR Gender Identity Not on file Sexual Orientation [...] 03/16/1981 DTAP/TDAP/TD VACCINES (1 - Tdap) 1982 PAP SMEAR 1984 PNEUMOCOCCAL VACCINE 50+ (1 of 1 - PCV) 2013 ZOSTER VACCINE (1 of 2) 2013 DEPRESSION SCREENING 10/01/2024 COVID-19 VACCINE (2024-2 6 season) 2025 INFLUENZA VACCINE (#1) 2025 [...] patient's age to complete this topic Insurance [facility] * Guarantor: PAZ RAMIREZ Account Type Relation to Patient Date of Phone Billing Address Personal/Family Spouse [facility] COUNT INCLUDES THE [facility] * Guarantor: JAMESPAZ Donohue Account Type Relation to Patient Date of Phone Billing Address Personal/Family Spouse [facility] [id number] [place] [address] Member Subscriber Plan / Payer (Ef fective 2025-Present) Name:Mahesh Ramireztamra Galvan Relation to Subscriber:Self Name:Paz Ramirez Payer ID:[id number] (NAIC) Type:PPO Address: [place] [id number] Care Teams Mandolin Repairer Relationship Specialty Start Date End Date Russell Bianchi MD [address] [place] [address] PCP - General 07/07/21
--- OUTSIDE RECORDS SUMMARY | 2025-09-29 01:16 | XMS_ITS | Encounter Summary ---
Author Organization [facility] Address [address] [facility] [address] Care Team Providers Care Card Fixer Name Role Phone Russell Bianchi MD Primary Care Provider Encounter Details Date Type Department Care Team (Late st Contact Info) Description 08/19/2024 Lab Requisition [facility] - DermPath Lab [address] [facility], [place] [address] Janice Gomez DO [address] [facility] [address] [place] [address] Social History Tobacco Use Types Packs/Day Years Used Date Smoking Tobacco: Never Assessed Comments Unknown Sex and Gender Information Value Date Recorded Sex Assigned at Not on file Legal Sex Female 7:48 AM SHRUB GROWER Gender Identity Not on file Sexual Orientation Not on file documented as of this encounter Plan of Treatment Not on file documented as of this encounter Procedures Procedure Name Priority Date/Time Associated Diagnosis Comments DERMATOPATHOLOGY Routine 08/19/2024 2:20 PM SHRUB GROWER documented in this encounter Results * DERMATOPATHOLOGY (08/19/2024 2:20 PM SHRUB GROWER) Case Report Dermatopathology Report Case: [id number] Authorizing Provider: Janice Gomez DO Collected: 08/19/2024 02:20 PM Ordering Location: [facility] - Received: 08/20/2024 10:58 AM DermPath Lab Pathologist: Arely Drew MD Specimen: Skin, right cheek 4 5:14 PM [facility] DERMATOPATHOLOGY LABORATORY Final Diagnosis Specimen A. SKIN, right cheek: ANGIOFIBROMA (FIBROUS PAPULE) (D21.0) ACTINIC KERATOSIS, FOCAL CHANGES(L57.0) (see microscopic description) 4 5:14 PM [facility] DERMATOPATHOLOGY LABORATORY at [address] Clinical History R/O BCC 4 5:14 PM [facility] DERMATOPATHOLOGY LABORATORY Gross Description Specimen A: Received is one formalin filled container labeled with the patient's name and designated right cheek. The specimen consists of a shave biopsy measuring 2x2x1 mm. Jar 0. 4 5:14 PM [facility] DERMATOPATHOLOGY LABORATORY Microscopic Description Specimen A. SKIN, [...] XIIIa and negative for SOX10. 5:14 PM [facility] DERMATOPATHOLOGY LABORATORY Disclaimer An external and internal positive and negative controls are appropriate for the histochemical, immunohistochemical and immunofluorescence stain(s) in this case (if any), except where stated explicitly. The performance characteristics of the stain(s) cited in this report were developed and its performance characteristic determined by the Dermatopathology Laboratory at [facility], directed by Dr. Reji Rice. These tests need not be, and therefore are not, approved by the [place] Food and Drug Administration. The tests are used for clinical purposes. Billing Codes Specimen Charges Stain Charges 67796 1 [id number] 71736 1 1 4 5:14 PM [facility] DERMATOPATHOLOGY LABORATORY Embedded Images 4 5:14 PM [facility] DERMATOPATHOLOGY LABORATORY Pathology/Cytolo gy TISSUE SPECIMEN FROM SKIN / Unknown 08/19/2024 2:20 PM SHRUB GROWER 08/20/2024 10:58 AM SHRUB GROWER us Janice Gomez DO LAB - PATHOLOGY/CYTOLOGY ORDERABLES Final Result DERMATOPATHOLOGY LABORATORY [facility] - Department of Dermatology [facility] [facility], 3rd Floor [address] [phone] documented in this encounter Visit Diagnoses Not on filedocumented in this encounter Care Teams Card Fixer Relationship Specialty Start Date End Date Russell Bianchi MD [address] [place] [address] PCP - General 07/07/21 documented as of this encounter
--- OUTSIDE RECORDS SUMMARY | 2025-09-29 01:16 | XMS_ITS | Encounter Summary ---
Author Organization [facility] Address [facility] [place] [address] Care Team Providers Care Flatwork Folder Name Role Phone Gaurav Arango MD Unavailable [phone] Jacinta Del Rosario Primary Care Provider [phone] Mauricio Wood MD Unavailable [phone] Encounter Details Date Type Department Care Team (Late st Contact Info) Description 12/01/2021 Echolocation Message Enc [facility] [address] [place], [place] [phone] [place] [address] [place] [address] Physical therapy Social History Tobacco Use Types Packs/Day Years Used Date Smoking Tobacco: Never Smokeless Tobacco: Never Comments:Provider to elementary school counselor Alcohol Use Standard Drinks/Week Comments Yes 0 (1 standard drink = 0.6 oz pure alcohol) occasionally. less than 1 drink a week PHQ-2 Answer Date Recorded PHQ-2 Score - If the patient scores above 3, please move on to questions 3-9 0 11/15/2021 Comments No Sex and Gender Information Value Date Recorded Sex Assigned at Female 10/14/2024 3:51 PM CRYSTAL REPORT DEVELOPER Legal Sex Female 5:51 PM CDT Gender Identity Female 09/23/2021 9:05 AM CRYSTAL REPORT DEVELOPER Sexual Orientation Straight 09/23/2021 9: 05 AM CRYSTAL REPORT DEVELOPER COVID-19 Exposure Response Date Recorded In the last 10 days, have yo u been in contact with someone who was confirmed or suspected to have Coronavirus/COVID-19? No / Unsure 12/02/2021 4:12 PM CRYSTAL REPORT DEVELOPER documented as of this encounter Functional Status [...] st Contact Info) Description 11/27/2025 3:30 PM CRYSTAL REPORT DEVELOPER Appointment [facility] [address] [facility] [address] [place], [place] [phone] Mauricio Wood MD [place] [address] [place] [address] 12/03/2025 2:30 PM CRYSTAL REPORT DEVELOPER Office Visit [facility] [address] [place] [phone] Miryam Pelayo, PYTHON DEVELOPER Three [address] [address] documented as of this encounter Visit Diagnoses Not on filedocumented in this encounter Additional Health Concerns Infection Onset Date Last Indicated Resolved Time COVID-19 Rule Out 08/28/2022 08/28/2022 08/28/2022 10:13 AM CRYSTAL REPORT DEVELOPER COVID-19 Rule Out 06/28/2023 06/28/2023 06/28/2023 9:17 AM CDT COVID-19 Rule Out 09/04/2024 09/04/2024 09/04/2024 12:21 PM CRYSTAL REPORT DEVELOPER COVID-19 Rule Out 10/27/2024 10/27/2024 10/27/2024 10:34 AM CRYSTAL REPORT DEVELOPER COVID-19 Rule Out 11/20/2024 11/20/2024 11/20/2024 9:48 AM CRYSTAL REPORT DEVELOPER Respiratory Rule Out 01/28/2025 01/28/2025 025 11:41 AM CDT Respiratory Rule Out 08/24/2025 08/24/2025 025 12:21 PM CRYSTAL REPORT DEVELOPER Assessment Noted Time PHQ-9 Depression Total Score: 0 11/15/19 8:46 AM CRYSTAL REPORT DEVELOPER documented as of this encounter Care Teams Flatwork Folder Relationship Specialty Start Date End Date Jacinta Del Rosario FNP PCP - General Nurse Practitioner Family 07/14/19 Gaurav Arango MD ORTHOPAEDIC SURGERY 12/19/18 Mauricio Wood MD Three [place] [address] [place] [address] Consulting Physician CARDIOVASCULAR DISEASE 01/05/22 documented as of this encounter
--- OUTSIDE RECORDS SUMMARY | 2025-09-29 01:16 | XMS_ITS | Encounter Summary ---
Author Organization [facility] Address [facility] [place] [address] Care Team Providers Care Roll Icer Name Role Phone Gaurav Arango MD Unavailable [phone] Jacinta Del RosarioP Primary Care Provider [phone] Mauricio Wood MD Unavailable [phone] Encounter Details Date Type Department Care Team (Late st Contact Info) Description 01/11/2022 Egenera Message Enc [facility] Orthopedic [facility] Medicine - [place] [address] [place], [facility] Provider surgery time change for 01/13 Social History Tobacco Use Types Packs/Day Years [...] Sex Assigned at Female 10/14/2024 3:51 PM DINING ROOM COORDINATOR Legal Sex Female 5:51 PM CDT Gender Identity Female 09/23/2021 9:05 AM DINING ROOM COORDINATOR Sexual Orientation Straight 09/23/2021 9: 05 AM DINING ROOM COORDINATOR COVID-19 Exposure Response Date Recorded In the last 10 days, have yo u been in contact with someone who was confirmed or suspected to have Coronavirus/COVID-19? No / Unsure 01/14/2022 7:43 AM CDT documented as of this encounter [...] st Contact Info) Description 11/27/2025 3:30 PM DINING ROOM COORDINATOR Appointment [address] [place], [place] [phone] Mauricio Wood MD [address] [address] 12/03/2025 2:30 PM DINING ROOM COORDINATOR Office Visit [facility] [place] [address] Miryam Pelayo, PRIVATE BRANCH EXCHANGE INSTALLER Three [place] [address] [place] [address] documented as of this encounter Visit Diagnoses Not on filedocumented in this encounter Additional Health Concerns Infection Onset Date Last Indicated Resolved Time COVID-19 Rule Out 08/28/2022 08/28/2022 08/28/2022 10:13 AM DINING ROOM COORDINATOR COVID-19 Rule Out 06/28/2023 06/28/2023 06/28/2023 9:17 AM CDT COVID-19 Rule Out 09/04/2024 09/04/2024 09/04/2024 12:21 PM DINING ROOM COORDINATOR COVID-19 Rule Out 10/27/2024 10/27/2024 10/27/2024 10:34 AM DINING ROOM COORDINATOR COVID-19 Rule Out 11/20/2024 11/20/2024 11/20/2024 9:48 AM DINING ROOM COORDINATOR Respiratory Rule Out 01/28/2025 01/28/2025 025 11:41 AM CDT Respiratory Rule Out 08/24/2025 08/24/2025 025 12:21 PM DINING ROOM COORDINATOR Assessment Noted Time PHQ-9 Depression Total Score: 0 11/15/19 22 8:46 AM DINING ROOM COORDINATOR documented as of this encounter Care Teams Roll Icer Relationship Specialty Start Date End Date Jacinta Del Rosario FNP PCP - General Nurse Practitioner Family 07/14/19 Gaurav Arango MD ORTHOPAEDIC SURGERY 12/19/18 Mauricio Wood MD Three [facility]. [place] [address] [place] [address] Consulting Physician CARDIOVASCULAR DISEASE 01/05/22 documented as of this encounter
--- OUTSIDE RECORDS SUMMARY | 2025-09-29 01:16 | XMS_ITS | Encounter Summary ---
Author Organization [facility] Address [facility] [place] [address] Care Team Providers Care Supervisor Mold Construction Name Role Phone Gaurav Arango MD Unavailable [phone] Jacinta Del Rosario Primary Care Provider [phone] Mauricio Wood MD Unavailable [phone] Encounter Details Date Type Department Care Team (Late st Contact Info) Description 04/17/2023 [email or web address] Message Enc [facility] Orthopedic & Sports Medicine - [place] [address] [place], [facility] Provider Apt for carpal tunnel Social History Tobacco Use Types Packs/Day Years Used Date Smoking Tobacco: Never Smokeless Tobacco: Never Comments:Never Smoked Alcohol Use Standard Drinks/Week Comments Yes 0 (1 standard drink = 0.6 oz pure alcohol) occasionally. less than 1 drink a week PHQ-2 Answer Date Recorded Patient Health Questionnaire-2 Score 0 04/09/2023 Comments No Sex and Gender Information Value Date Recorded Sex Assigned at Female 10/14/2024 3:51 PM PREFABRICATOR Legal Sex Female 5:51 PM CDT Gender Identity Female 09/23/2021 9:05 AM PREFABRICATOR Sexual Orientation Straight 09/23/2021 9: 05 AM PREFABRICATOR documented as of this encounter Functional Status [...] st Contact Info) Description 11/27/2025 3:30 PM PREFABRICATOR Appointment [facility] [address] [facility] [place] [address] Mauricio Wood MD [facility] [address] [place] [address] 12/03/2025 2:30 PM PREFABRICATOR Office Visit [facility] [address] [place] [phone] Miryam Pelayo NP [facility] [address] [place], [place] [address] documented as of this encounter Visit Diagnoses Not on filedocumented in this encounter Additional Health Concerns Infection Onset Date Last Indicated Resolved Time COVID-19 Rule Out 06/28/2023 06/28/2023 06/28/2023 9:17 AM CDT COVID-19 Rule Out 09/04/2024 09/04/2024 09/04/2024 12:21 PM PREFABRICATOR COVID-19 Rule Out 10/27/2024 10/27/2024 10/27/2024 10:34 AM PREFABRICATOR COVID-19 Rule Out 11/20/2024 11/20/2024 11/20/2024 9:48 AM PREFABRICATOR Respiratory Rule Out 01/28/2025 01/28/2025 025 11:41 AM CDT Respiratory Rule Out 08/24/2025 08/24/2025 025 12:21 PM PREFABRICATOR Assessment Noted Time PHQ-9 Depression Total Score: 0 09/15/20 9:53 AM PREFABRICATOR documented as of this encounter Care Teams Supervisor Mold Construction Relationship Specialty Start Date End Date Jacinta Del oRsario FNP PCP - General Nurse Practitioner Family 07/14/19 Gaurav Arango MD ORTHOPAEDIC SURGERY 12/19/18 Mauricio Wood MD [address] [address] Consulting Physician CARDIOVASCULAR DISEASE 01/05/22 documented as of this encounter
--- OUTSIDE RECORDS SUMMARY | 2025-09-29 01:16 | XMS_ITS | Encounter Summary ---
Author Organization [facility] Address [facility] [place] [address] Care Team Providers Care Crepe Machine Operator Name Role Phone Gaurav Arango MD Unavailable [phone] Jacinta Del Rosario Primary Care Provider [phone] Mauricio Wood MD Unavailable [phone] Encounter Details Date Type Department Care Team (Late st Contact Info) Description 08/29/2022 MyChart Message Enc [address] [place], [place] [phone] Ivette Isidro FNP GI Bug Social History Tobacco Use Types Packs/Day Years Used Date Smoking Tobacco: Never Smokeless Tobacco: Never Comments:Never Smoked Alcohol Use Standard Drinks/Week Comments Yes 0 (1 standard drink = 0.6 oz pure alcohol) occasionally. less than 1 drink a week PHQ-2 Answer Date Recorded PHQ-2 Score - If the patient scores above 3, please move on to questions 3-9 0 08/21/2022 Comments No Sex and Gender Information Value Date Recorded Sex Assigned at Female 10/14/2024 3:51 PM RADIATION PROTECTION ENGINEER Legal Sex Female 5:51 PM CDT Gender Identity Female 09/23/2021 9:05 AM RADIATION PROTECTION ENGINEER Sexual Orientation Straight 09/23/2021 9: 05 AM RADIATION PROTECTION ENGINEER COVID-19 Exposure Response Date Recorded In the last 10 days, have ayah oropeza been in contact with someone who was confirmed or suspected to have Coronavirus/COVID-19? No / Unsure 08/31/2022 7:18 AM RADIATION PROTECTION ENGINEER documented as of this encounter Functional Status [...] documented in this encounter Progress Notes * Petra Sherman LPN - 08/29/2022 4:52 PM CST Patient told. ATION PROTECTION ENGINEER * DARÍO Romano - 08/29/2022 4:32 PM CST Patient teams messaged me and I replied to her that she could take imodium as needed but it would delay the virus leaving her system so try to hold off if possible. Try eating dry crackers and toast.Keep drinking small amounts at a time. ATION PROTECTION ENGINEER * Darleen Duncan LPN - 08/29/2022 3:24 PM CST Please review/advise. ATION PROTECTION ENGINEER documented in this encounter Plan of Treatment Upcoming Encounters Date Type Department Care Team (Late st Contact Info) Description 11/27/2025 3:30 PM RADIATION PROTECTION ENGINEER Appointment [facility] [address] [facility] [address] [place] [phone] Mauricio Wood MD [address] [phone] 12/03/2025 2:30 PM RADIATION PROTECTION ENGINEER Office Visit [facility] [place] [phone] Miryam Pelayo NP [address] [phone] documented as of this encounter Visit Diagnoses Not on filedocumented in this encounter Additional Health Concerns Infection Onset Date Last Indicated Resolved Time COVID-19 Rule Out 06/28/2023 06/28/2023 06/28/2023 9:17 AM CDT COVID-19 Rule Out 09/04/2024 09/04/2024 09/04/2024 12:21 PM RADIATION PROTECTION ENGINEER COVID-19 Rule Out 10/27/2024 10/27/2024 10/27/2024 10:34 AM RADIATION PROTECTION ENGINEER COVID-19 Rule Out 11/20/2024 11/20/2024 11/20/2024 9:48 AM RADIATION PROTECTION ENGINEER Respiratory Rule Out 01/28/2025 01/28/2025 025 11:41 AM CDT Respiratory Rule Out 08/24/2025 08/24/202524/2 025 12:21 PM RADIATION PROTECTION ENGINEER Assessment Noted Time PHQ-9 Depression Total Score: 0 11/15/19 22 8:46 AM RADIATION PROTECTION ENGINEER documented as of this encounter Care Teams Crepe Machine Operator Relationship Specialty Start Date End Date Jacinta Del Rosario FNP PCP - General Nurse Practitioner Family 07/14/19 Gaurav Arango MD ORTHOPAEDIC SURGERY 12/19/18 Mauricio Wood MD [address] [address] Consulting Physician CARDIOVASCULAR DISEASE 01/05/22 documented as of this encounter
--- OUTSIDE RECORDS SUMMARY | 2025-09-29 01:16 | XMS_ITS | Clinical Summary ---
Author Organization [facility] Address Replaced by [facility] [place] [address] Care Team Providers Care Air Pollution Control Engineer Name Role Phone Gaurav Arango MD Unavailable [phone] Jacinta Del Rosario CRIMINAL RESEARCHER Primary Care Provider [phone] Mauricio Wood MD Unavailable [phone] Allergies Active Allergy Reactions Criticality Noted Date Comments Hydrocodone Nausea Only Low 12/24/2018 Says she tolerates Tramadol well Oxycodone Nausea Only Low 12/24/2018 Says she tolerates Tramadol well Medications levothyroxine (SYNTHROID) 50 MCG tabletIndication s:Hypothyroidism , unspecified type Take 1 tablet (50 mcg total) by mouth every morning. 90 tablet 03/10/20 25 Active metoprolol succinate ER (TOPROL-XL) 25 MG 24 hr tabletIndication s:Essential hypertension Take 0.5 tablets (12.5 mg total) by mouth daily. 45 tablet 04/02/20 25 Active Cholecalciferol (VITAMIN D3) 50 MCG (1999) CapIndications:V itamin D deficiency Take 1 caps. PO DAILY (start after 8 week regimen of Rx. Vit. D 50,000 iu) 30 capsule 5 04/02/20 25 Active DULoxetine (CYMBALTA) 30 MG capsuleIndicatio ns:MARITZA (generalized anxiety disorder) Take 1 capsule (30 mg total) by mouth daily. 90 capsule 06/30/20 25 Active oxybutynin XL (DITROPAN-XL) 5 MG 24 hr tabletIndication s:OAB (overactive bladder) TAKE 1 TABLET(5 MG) BY MOUTH DAILY 90 tablet 09/02/20 25 Active meloxicam (MOBIC) 15 MG tabletIndication s:Chronic pain of both knees TAKE 1 TABLET BY MOUTH DAILY WITH FOOD NEEDED FOR JOINT PAIN 90 tablet 09/10/20 25 Active lisinopril (PRINIVIL) 5 MG tabletIndication s:Essential hypertension Take 1 tablet (5 mg total) by mouth daily. 90 tablet 09/10/20 25 Active traMADol (ULTRAM) 50 MG tabletIndication s:Acute Pain < 7 Day Supply Take 1 tablet (50 mg total) by mouth 3 (three) times daily as needed for Pain. Indications : Acute Pain < 7 Day Supply 21 tablet 09/10/20 25 Active oxybutynin XL (DITROPAN-XL) 5 MG 24 hr tabletIndication s:OAB (overactive bladder) TAKE 1 TABLET(5 MG) BY MOUTH DAILY 90 tablet 06/03/20 25 025 Discontinued lisinopril (PRINIVIL) 5 MG tabletIndication s:Essential hypertension Take 1 tablet (5 mg total) by mouth daily. 90 tablet 06/08/20 25 025 Discontinued(Re order) meloxicam (MOBIC) 15 MG tabletIndication s:Chronic pain of both knees TAKE 1 TABLET BY MOUTH DAILY WITH FOOD NEEDED FOR JOINT PAIN 90 tablet 07/13/20 25 025 Discontinued(Re order) Active Problems Problem Noted Date Diagnosed Date Controlled substance agreement signed 02/17/2025 Overview (02/17/2025): 02/17/25 Stage 2 chronic kidney disease 02/05/2025 Vitamin D deficiency 10/30/2023 OAB (overactive bladder) 10/30/2023 Chronic pain of both knees 10/30/2023 Status post laser lithotripsy of ureteral calcul us 07/26/2023 History of headache 09/19/2022 Borderline type 2 diabetes mellitus 08/03/2022 Hypercholesteremia 08/03/2022 Bilateral lower extremity edema 05/17/2022 S/P arthroscopy of right shoulder 01/12/2022 Thoracic aortic aneurysm without rupture 022 Nontraumatic complete tear of right rotator cuff 11/15/2021 Impingement syndrome of right shoulder Osteoarthritis of right acromioclavicular joint 11/15/2021 Superior glenoid labrum lesi on of right shoulder, initial encounter 11/15/2021 Adhesive capsulitis of right shoulder 11/15/2021 Hamstring tendinitis of right thigh 03/28/2021 Pulmonary nodule, right 11/26/2020 Overview (11/26/2020): 3 mm 11/19/2020 Class 2 severe obesity due t o excess calories with serious comorbidity and body mass index (BMI) of 36.0 to 36.9 in adult 07/22/2019 History of nephrolithiasis 07/22/2019 S/P total knee arthroplasty 11/12/2018 Primary osteoarthritis of both knees 09/06/2018 Essential hypertension 11/25/2014 Hypothyroidism 11/25/2014 Resolved Problems Problem Noted Date Diagnosed Date Resolved Date Screening for colon cancer 04/21/2025 0 04/27/2025 Screening for colon cancer 04/21/2025 0 05/11/2025 Screening for colon cancer 04/21/2025 0 06/01/2025 Obesity (BMI 30-39.9) 10/30/20232024 Osteoarthritis of left knee 12/24/2018 01/08/2019 Osteoarthritis of right knee 11/12/2018 01/08/2019 Encounters Date Type Department Care Team Description 09/10/2025 Orders Only [address] [place] [id number] Jacinta Del Rosario FNP 09/10/[address] [place] [phone] Jacinta Del Rosario FNP Medication Request 09/08/2025 Scan HEALTH INFO SRVCS Scanned, Doc Med Group Image (SCAN) 09/02/2025 10:10 AM SAUTE CHEF - 09/02/2025 11:59 PM SAUTE CHEF Hospital Encounter [facility] [address] [place] [address] Alonso Colby MD Discharge Disposition: Home or Self Care (Routine Discharge) 09/02/2025 Orders Only [facility] [address] [place] [address] Alonso Colby MD 09/02/2025 Travel 08/24/2025 12:00 PM SAUTE CHEF Office Visit [address] [place] [address] Jenn Torres FNP Sore Throat (Chills, scratchy throat, and body aches started this morning. Her was diagnosed with Influenza A this morning./-nkw) 08/24/2025 Travel 08/19/2025 12:08 PM SAUTE CHEF - 08/19/2025 11:59 PM SAUTE CHEF [place] [address] [place] [address] Alonso Colby MD Discharge Disposition: Home or Self Care (Routine Discharge) 08/19/2025 Travel 08/07/2025 7:40 AM SAUTE CHEF - 08/07/2025 11:59 PM SAUTE CHEF Hospital Encounter [facility] [address] [place] [address] Alonso Colby MD Discharge Disposition: Home or Self Care (Routine Discharge) 08/07/2025 Travel 07/08/2025 12:32 PM CDT - 07/08/2025 11:59 PM CDT Hospital Encounter [facility] [address] [place] [address] Jacinta Del Rosario FNP Discharge Disposition: Home or Self Care (Routine Discharge) 07/08/2025 MyChart Message Enc [address] [place] [id number] [phone] Jacinta Del Rosario FNP Ultrasound 07/08/2025 Travel 06/30/2025 12:48 PM CDT - 06/30/2025 11:59 PM CDT Hospital Encounter [facility] [address] [place] [address] Jacinta Del Rosario FNP Discharge Disposition: Home or Self Care (Routine Discharge) 06/30/2025 12:00 PM CDT Office Visit [facility] [address] [place] [address] Jacinta Del Rosario FNP Follow Up (Pt states she thinks things are going well on new med. ); Anxiety; Leg Swelling (Left leg swelling) 06/30/2025 Results Follow-Up [address] [place] [address] Jacinta Del Rosario FNP BASIC METABOLIC PANEL, USV MALICK DUPLEX LOW EXT LT 06/30/2025 Travel from Last 3 Months Immunizations Immunization Administration Dates Next Due Hepatitis B (Recombivax Hb 10 Mcg) 11/24/2020 Influenza (Generic) 07/17/2024,07/16/2018,2016 Influenza Adult (Generic) 08/09/2023,,07/23/2020,2018,07/16/2018 PFIZER COVID-19 (ORIGINAL FORMULATION, PURPLE CAP) mRNA, LNP-S, PF, 30 MCG/0.3 ML DOSE 09/29/2021,12/09/2020,10/20/2020,2020 Shingrix 08/05/2023,06/01/2023 Tdap (Adacel) 01/15/2024 Tdap (Generic) 11/01/2013 Family History Medical History Relation Comments Cancer Brother pancreatic Cancer Father Lung Cancer Father pancreas cancer Father Alzheimers Mother Dementia Mother Relation Status Comments Brother Daughter 1 Alive Daughter 2 Alive Father (Age 88) lung cancer Mother (Age 97) of cezar ia Son Alive Social History Tobacco Use Types Packs/Day Years Used Date Smoking Tobacco: Never Smokeless Tobacco: Never Tobacco Cessation:Counseling Given: No Comments:Never Smoked Alcohol Use Standard Drinks/Week Comments Yes 0 (1 standard drink = 0.6 oz pure alcohol) occasionally. less than 1 drink a week PHQ-2 Answer Date Recorded Patient Health Questionnaire-2 Score 0 06/30/2025 Comments No Sex and Gender Information Value Date Recorded Sex Assigned at Female 10/14/2024 3:51 PM SAUTE CHEF Legal Sex Female 5:51 PM CDT Gender Identity Female 09/23/2021 9:05 AM SAUTE CHEF Sexual Orientation Straight 09/23/2021 9: 05 AM SAUTE CHEF Last Filed Vital Signs Vital Sign Reading Time Taken Comments Blood Pressure 132/70 08/24/2025 11:58 AM SAUTE CHEF Pulse 84 08/24/2025 11:58 AM SAUTE CHEF Temperature 36.7 C (98.1 F) 08/24/2025 11:58 AM SAUTE CHEF Respiratory Rate 16 08/24/2025 11:58 AM SAUTE CHEF Oxygen Saturation 98% 08/24/2025 11:58 AM SAUTE CHEF Inhaled Oxygen Concentration - - Weight 101.6 kg (224 lb) 08/24/2025 11:58 AM SAUTE CHEF Height 162.6 cm (5' 4) 08/24/2025 11:58 AM SAUTE CHEF Body Mass Index 38.45 08/24/2025 11:58 AM SAUTE CHEF Plan of Treatment Upcoming Encounters Date Type Department Care Team (Late st Contact Info) Description 11/27/2025 3:30 PM SAUTE CHEF Appointment [facility] [address] [facility] [place] [address] Mauricio Wood MD [address] [address] 12/03/2025 2:30 PM SAUTE CHEF Office Visit [facility] [place] [phone] Miryam Pelayo, KADY [address] [address] Health Maintenance Due Date Last Done Comments Hepatitis C 1981 Pneumococcal Vaccine: 50+ Years (1 of 1 - PCV) 2013 Annual Physical 01/06/2024 01/05/2023 Mammogram Screening 01/29/2025 01/29/2023 COVID-19 Vaccine ( season) 2025 09/29/2021, 12/09/2020, 10/20/2020, Additional history exists Influenza Adult (#1) 2025 07/17/2024, 08/09/2023, 07/21/2022, Additional history exists DTaP, Tdap and Td Vaccines (3 - Td or Tdap) 01/14/2034 01/15/2024, 11/01/2013 Colorectal Cancer Screening Colonoscopy (10 Years) 06/10/2035 06/10/2025, 07/26/2015 RSV Immunization or 60+ Years (1 - 1-dose 75+ series) 2038 Zoster Vaccines Completed 08/05/2023, 06/01/2023 PHQ-2 (Physician [place]) Completed 06/30/2025 Hepatitis A Vaccines Aged Out No long er eligible based on patient's age to complete this topic Meningococcal B Vaccine Aged Out No l onger eligible based on patient's age to complete this topic Meningococcal Vaccine Aged Out No shavon bhavana eligible based on patient's age to complete this topic RSV Immunizations Under 20 Months Aged Out No longer eligible based on patient's age to complete this topic Medical Devices Implanted Type Area Fuel Island Attendant Device Identifier Shelf Expiration Date Model / Serial / Lot Implant [place] Arthrex Bio Swivelock 4.75mm - [id number] Implanted:Qty : 1 on 01/13/2022 by Adolfo Nichole MD at [facility] [place] Right: Shoulder [employer] [id number] 09/30/2025 AR-2324B CC / / [id number] [place] [employer] Bio Swivelock 5.5mm (Ar-2323bcc) - [id number] Implanted:Qty : 1 on 01/13/2022 by Adolfo Nichole MD at [facility] [place] Right: Shoulder [employer] [id number] 06/30/2025 AR-2323B CC / / [id number] Cement Full Dose - [id number] Implanted:Qty : 2 on 11/12/2018 by Gaurav Arango MD at [facility] Cement Implant Right: Knee [employer] - DIV SH[employer]I LYN 01/28/2021 6191-1-0 01 / / [id number] Triathlon Posterior Stabilized Femoral Component Implanted:Qty : 1 on 11/12/2018 by Gaurav Arango MD at [facility] Knee Components Right: Femur [employer] DIV [employer] 08/09/2021 5515-F-5 02 / / [id number] Triathlon Primary Tibial Baseplate Implanted:Qty : 1 on 11/12/2018 by Gaurav Arango MD at [facility] Knee Components Right: Tibia [employer] 07/17/2023 5520-B-4 00 / / [id number] Triathlon X3 Symmetric Patella Implanted:Qty : 1 on 11/12/2018 by Gaurav Arango MD at [facility] Knee Components Right: Patella [employer] DIV [employer] 06/23/2023 5550-G-2 98 / / [id number] Triathlon X3 Tibial Bearing Insert Implanted:Qty : 1 on 11/12/2018 by Gaurav Arango MD at [facility] Knee Components Right: Tibia [employer] DIV [employer] 03/15/2023 5532-G-4 13 / / [id number] Triathlon X3 Tibial Bearing Insert Implanted:Qty : 1 on 12/24/2018 by Gaurav Arango MD at [facility] Knee Components Left: Patella [employer] - DIV [employer] 11/24/2020 5532-G-4 13 / / [id number] Cement Full Dose - [id number] Implanted:Qty : 2 on 12/24/2018 by Gaurav Arango MD at [facility] Knee Components Left: Knee [employer] - DIV [employer] 01/28/2021 6191-1-0 01 / / [id number] Triathlon Posterior Stabilized Femoral, Cemented Implanted:Qty : 1 on 12/24/2018 by Gaurav Arango MD at [facility] Knee Components Left: Femur [employer] - DIV [employer] 01/24/2023 5515-F-4 01 / / [id number] Triathlon Primary Tibial Baseplate, Cemented Implanted:Qty : 1 on 12/24/2018 by Gaurav Arango MD at [facility] Knee Components Left: Tibia [employer] - DIV [employer] 07/28/2023 5520-B-4 00 / / [id number] Triathlon X3 Symmetric Patella Implanted:Qty : 1 on 12/24/2018 by Gaurav Arango MD at [facility] Knee Components Left: Patella [employer] DIV [employer] 10/16/2023 5550-G-3 19 / / [id number] Stent Ureteral [employer] Contour 6fr X 26cm - [id number] Implanted:Qty : 1 on 06/28/2022 by Manoj Merlos MD at [facility] Stent Left: Ureter [employer] [id number] 05/03/2025 [id number] / / [id number] Explanted Type Area Fuel Island Attendant Device Identifier Shelf Expiration Date Model / Serial / Lot Stent [place] [employer] 6fr X 26cm - [id number] Implanted:Qty: 1 on 12/07/2020 by Manoj Merlos MD at [facility] Explanted:Qty: 1 on 06/28/2022 by Manoj Merlos MD at [facility] Stent Left: Ureter [employer] - DIV C R [employer] 02/11/2025 [id number] / / [id number] Description:NOT PRESENT ON D AY OF SURGERY, PREVIOUSLY REMOVED. Procedures Procedure Name Priority Date/Time Associated Diagnosis Comments IMAGE GENERIC 09/08/2025 URINE BACTERIA CULTURE Routine 11:56 AM SAUTE CHEF Calculus of kidney URINALYSIS MICRO ONLY Routine 09/02/2025 11:56 AM SAUTE CHEF URINALYSIS Routine 09/02/2025 11:56 AM SAUTE CHEF Calculus of kidney CORONAVIRUS (COVID-19) INFLUENZA A & B ANTIGEN IA PANEL Routine 08/24/[address] ABD+PEL WO CON Routine 08/19/2025 12: 18 PM SAUTE CHEF Urolithiasis US RETROPERITONEAL COMP Routine 08/07/20 8:44 AM SAUTE CHEF Urolithiasis XR ABD KUB Routine 08/07/2025 8:03 AM SAUTE CHEF Urolithiasis USV MALICK DUPLEX LOW EXT LT NITIN 07/08/2025 1:28 PM CDT Left leg swelling HC BASIC METABOLIC PANEL Routine 06/30/2025 12:26 PM CDT Primary hypertension Left leg swelling MG SCREENING W ARTEM ROSARIO DIGI Routine 01/29/2023 10:00 AM CDT Encounter for screening mammogram for malignant neoplasm of breast COLONOSCOPY GENERIC (SCAN ORDER) Routine 07/26/2015 from Last 3 Months or Most Recently Relevant to Health Maintenance Results * IMAGE GENERIC (09/08/2025) Anatomical Region Laterality Modality Other 09/08/2025 us Doc Med Group Scanned SCANNING Final Resu lt * URINE BACTERIA CULTURE (09/02/2025 11:56 AM SAUTE CHEF) SPEC DESCRIPTION URINE CLEAN CATCH 09/02/2025 11:56 AM SAUTE CHEF [facility] SPECIAL REQUESTS NO SPECIAL REQUEST 09/02/2025 11:56 AM SAUTE CHEF [facility] CULTURE RESULT POLYMICROBIAL GROWTH CONSISTENT WITH NORMAL GENITAL FREDY. SUSCEPTIBILITIES NOT ROUTINELY PERFORMED. 09/04/2025 8:32 AM SAUTE CHEF [facility] URINE URINE SPECIMEN OBTAINED BY CLEAN CATCH PROCEDURE / Unknown 09/02/2025 11:56 AM SAUTE CHEF 09/02/2025 11:57 AM SAUTE CHEF Alonso Colby MD MICROBIOLOGY - GENERAL ORDERABLES Final Result Performing Organization Address City/[facility]/ZIP Co de Phone Number [facility] [address] [place] [address], [place] [phone] [facility] [address] [place] [address], [place] [phone] * URINALYSIS MICRO ONLY (09/02/2025 11:56 AM SAUTE CHEF) WBC/HPF 0-5 0 - 5 /HPF 09/02/2025 12:10 PM SAUTE CHEF [facility] RBC/HPF 5-10 0 - 5 /HPF 09/02/2025 12:10 PM [facility] EPI/HPF FEW /HPF 09/02/2025 12:10 PM SAUTE CHEF [facility] 09/02/2025 11:5 6 AM SAUTE CHEF Alonso Colby MD URINE ORDERABLES Final Result Performing Organization Address City/[facility]/ZIP Co de Phone Number [facility] [address] [place] [address], [place] [phone] * (ABNORMAL) URINALYSIS (09/02/2025 11:56 AM SAUTE CHEF) COLOR (U) YELLOW 09/02/2025 12:10 PM [facility] TRANSPARENCY CLEAR 09/02/2025 12:10 PM [facility] SPECIFIC GRAVITY (U) 1.015 1.000 - 1.030 09/02/2025 12:10 PM [facility] U PH 7.0 5.0 - 9.0 09/02/2025 12:10 PM [facility] LEUKOCYTES (U) NEGATIVE NEGATIVE 09/02/2025 12:10 PM [facility] NITRITES NEGATIVE NEGATIVE 09/02/2025 12:10 PM [facility] PROTEIN RANDOM (U) NEGATIVE NEGATIVE 09/02/2025 12:10 PM [facility] GLUCOSE (U) NEGATIVE NEGATIVE 09/02/2025 12:10 PM [facility] KETONES MG/DL (U) NEGATIVE NEGATIVE 09/02/2025 12:10 PM [facility] BILIRUBIN (U) NEGATIVE NEGATIVE 09/02/2025 12:10 PM [facility] BLOOD (U) TRACE(A) NEGATIVE 09/02/2025 12:10 PM [facility] URINE URINE SPECIMEN OBTAINED BY CLEAN CATCH PROCEDURE / Unknown 09/02/2025 11:56 AM SAUTE CHEF Alonso Colby MD URINE ORDERABLES Final Result [facility] [address] [place] [address], * CORONAVIRUS (COVID-19) INFLUENZA A & B ANTIGEN IA PANEL (08/24/2025) Pathologist [facility] CORONAVIRUS ANTIGEN IA NEGATIVE NEGATIVE [facility] (201), [place] INFLUENZA A NEGATIVE NEGATIVE [facility] (201), [place] INFLUENZA B NEGATIVE NEGATIVE [facility] (201), [place] Internal Control: VALID VALID [facility] (201), [place] SWAB NASAL STRUCTURE / Unknown 08/24/2025 Jenn Torres [facility] MICROBIOLOGY - GENERAL OR DERABLES Edited Result - Final [facility] (201), [address] [address], * CT ABD+PEL WO CON (08/19/2025 12:18 PM SAUTE CHEF) Anatomical Region Laterality Modality Abdomen Computed Tomogra phy 08/21/2025 9:16 AM SAUTE CHEF Impressions 08/21/2025 11:18 AM SAUTE CHEF =====IMPRESSION:===== 1. Multiple bilateral nonobstructive renal stones. Increase in size of at least one right renal stone noted. No change in number is seen. No evidence of obstructive renal stone noted. Previous right ureteral stone no longer visualized. Ordered By: ALONSO COLBY Interpreted By: Cuate Pereira MD, 08/21/2025 9:16 AM Narrative 08/21/2025 11:18 AM SAUTE CHEF [facility] [address] [place] [address] EXAMINATION: CT Abdomen and Pelvis without contrast EXAM DATE/TIME: 08/19/2025 12:10 PM REASON FOR EXAM: Urolithiasis COMPARISON: 01/05/2024 and 07/20/2011 TECHNIQUE: Axial CT images of the abdomen and pelvis are obtained without the use of IV contrast agent. Subsequent coronal and sagittal reformatted sequences are created for evaluation. A dose lowering technique was used for this procedure, which may include, but is not limited to, dose reduction technique, automated exposure control, the use of iterative reconstruction, and ALARA (As Low As Reasonably Achievable) / Image Gently techniques. FINDINGS: Multiple bilateral nonobstructive renal stones are seen. There are 3 right renal stones. These are unchanged in number from prior study. Slight increase in size in at least one stone is seen such as on image 63 measuring 6 mm x 6 mm. This measured 6 x 4 mm on prior study. 5 left nonobstructive renal stones are seen unchanged from prior study. Most prominent stone is seen on image 58 measuring 8 x 5 mm. Adjacent hypodensity could be due to a small cyst although size limits definitive evaluation additional lack of IV contrast. Previously noted distal right ureteral stone is no longer present. There is no hydronephrosis or hydroureter present. Lung Bases: Right middle lobe pulmonary nodule on image 7 is stable from prior study 01/05/2024 and 09/13/2022. Liver:Unremarkable. Gallbladder and Biliary system:Gallstones in the gallbladder are seen without evidence of acute cholecystitis. The gallbladder is somewhat contracted. Pancreas:Unremarkable. Spleen:No splenomegaly. Kidneys:As described above Ureters and bladder: As described above Adrenals:Normal. Bowel:Diverticulosis is seen without evidence of acute diverticulitis. No small bowel dilatation is seen.The stomach, duodenum, and viewed portions of the esophagus are unremarkable.The appendix is visualized and is within normal limits. Aorta and Retroperitoneum:No enlarged lymph nodes. Aorta is not aneurysmal. Pelvic Organs:Peripherally calcified mass in the right pelvis is seen, stable to prior exam in 2010 possibly of ovarian etiology. Rounded calcification in the left ovary is noted. This is stable from 01/05/2024. The uterus is not visualized. Bone/Musculoskeletal: No aggressive osseous lesions. Ascites: None Additional Findings: Fat density mass in the left pelvis is suspected. Such as on image 100. This measures 3.6 cm x 2.4 cm. This is stable from prior study in 2010. Procedure Note Cuate Pereira MD - 08/21/2025 [facility] [address] [place] [address] EXAMINATION: CT Abdomen and Pelvis without contrast EXAM DATE/TIME: 08/19/2025 12:10 PM REASON FOR EXAM: Urolithiasis COMPARISON: 01/05/2024 and 07/20/2011 TECHNIQUE: Axial CT images of the abdomen and pelvis are obtained withoutthe use of IV contrast agent. Subsequent coronal and sagittal reformattedsequences are created for evaluation. A dose lowering technique was usedfor this procedure, which may include, but is not limited to, dosereduction technique, automated exposure control, the use of iterativereconstruction, and ALARA (As Low As Reasonably Achievable) / Image Gentlytechniques. FINDINGS: Multiple bilateral nonobstructive renal stones are seen. Thereare 3 right renal stones. These are unchanged in number from prior study.Slight increase in size in at least one stone is seen such as on image 63measuring 6 mm x 6 mm. This measured 6 x 4 mm on prior study. 5 leftnonobstructive renal stones are seen unchanged from prior study. Mostprominent stone is seen on image 58 measuring 8 x 5 mm. Adjacenthypodensity could be due to a small cyst although size limits definitiveevaluation additional lack of IV contrast. Previously noted distal right ureteral stone is no longer present. Thereis no hydronephrosis or hydroureter present. Lung Bases: Right middle lobe pulmonary nodule on image 7 is stable fromprior study 01/05/2024 and 09/13/2022. Liver:Unremarkable. Gallbladder and Biliary system:Gallstones in the gallbladder are seenwithout evidence of acute cholecystitis. The gallbladder is somewhatcontracted. Pancreas:Unremarkable. Spleen:No splenomegaly. Kidneys:As described above Ureters and bladder: As described above Adrenals:Normal. Bowel:Diverticulosis is seen without evidence of acute diverticulitis. Nosmall bowel dilatation is seen.The stomach, duodenum, and viewed portionsof the esophagus are unremarkable.The appendix is visualized and is withinnormal limits. Aorta and Retroperitoneum:No enlarged lymph nodes. Aorta is notaneurysmal. Pelvic Organs:Peripherally calcified mass in the right pelvis is seen,stable to prior exam in 2010 possibly of ovarian etiology. Roundedcalcification in the left ovary is noted. This is stable from 01/05/2024.The uterus is not visualized. Bone/Musculoskeletal: No aggressive osseous lesions. Ascites: None Additional Findings: Fat density mass in the left pelvis is suspected.Such as on image 100. This measures 3.6 cm x 2.4 cm. This is stable fromprior study in 2010. =====IMPRESSION:===== 1. Multiple bilateral nonobstructive renal stones. Increase in size of atleast one right renal stone noted. No change in number is seen. Noevidence of obstructive renal stone noted. Previous right ureteral stoneno longer visualized. Ordered By: ALONSO COLBY Interpreted By: Cuate Pereira MD, 08/21/2025 9:16 AM us Alonso Colby MD CT Final R esult * US RETROPERITONEAL COMP (08/07/2025 8:44 AM SAUTE CHEF) Anatomical Region Laterality Modality Abdomen Ultrasound 08/07/2025 5:01 PM SAUTE CHEF Impressions 08/07/2025 5:07 PM SAUTE CHEF IMPRESSION: 1. Multiple bilateral nonobstructing renal calculi. 2. No hydronephrosis. 3. Bilateral ureteral jets noted. Ordered By: ALONSO COLBY Interpreted By: Kaiser Rouse, 08/07/2025 5:01 PM Narrative 08/07/2025 5:07 PM SAUTE CHEF [place] [id number] [facility] [place] [address] IMAGING STUDIES: US RETROPERITONEAL COMP DATE: 08/07/2025 8:03 AM CLINICAL HISTORY: UROLITHIASIS . History of urinary calculi removal FINDINGS: . Comparison of renal ultrasound of 02/24/2025. CT abdomen of 01/05/2024.. RIGHT KIDNEY MEASURES 12.1 x 6.2 x 5.4 cm. LEFT KIDNEY MEASURES 12.3 x 4.6 x 4.7 cm. No evidence of hydronephrosis.. Renal cortical volume is well-maintained. No solid renal lesions. Multiple bilateral nonobstructing renal calculi. Largest on the right side is in the inferior renal collecting system measuring 1 cm. Large shadowing calculus in the left kidney is at the left mid cortical medullary junction measuring up to 1.8 cm.. Incidental note made of a 1.5 cm left peripelvic cyst. Urinary bladder without focal mass. Bilateral ureteral jets noted. Procedure Note Frank Rouse MD - 08/07/2025 [facility] [address] [place] [address] IMAGING STUDIES: US RETROPERITONEAL COMP DATE: 08/07/2025 8:03 AM CLINICAL HISTORY: UROLITHIASIS . History of urinary calculi removal FINDINGS: . Comparison of renal ultrasound of 02/24/2025. CT abdomen of 01/05/2024.. RIGHT KIDNEY MEASURES 12.1 x 6.2 x 5.4 cm. LEFT KIDNEY MEASURES 12.3 x 4.6 x 4.7 cm. No evidence of hydronephrosis.. Renal cortical volume is well-maintained.No solid renal lesions. Multiple bilateral nonobstructing renal calculi. Largest on the right sideis in the inferior renal collecting system measuring 1 cm. Large shadowing calculus in the left kidney is at the left mid corticalmedullary junction measuring up to 1.8 cm.. Incidental note made of a 1.5 cm left peripelvic cyst. Urinary bladder without focal mass. Bilateral ureteral jets noted. IMPRESSION: 1. Multiple bilateral nonobstructing renal calculi. 2. No hydronephrosis. 3. Bilateral ureteral jets noted. Ordered By: ALONSO COLBY Interpreted By: Kaiser Rouse, 08/07/2025 5:01 PM us Alonso Colby MD ULTRASOUND Final R esult * XR ABD KUB (08/07/2025 8:03 AM SAUTE CHEF) Anatomical Region Laterality Modality Abdomen Radiographic Tomeka ging 08/07/2025 9:29 AM SAUTE CHEF Impressions 08/07/2025 2:33 PM SAUTE CHEF IMPRESSION: Bilateral renal calculi. Similar to prior exam. No gross new calculi. Moderate stool in colon may be due to constipation Ordered By: ALONSO COLBY Interpreted By: Kaiser Rouse, 08/07/2025 9:29 AM Narrative 08/07/2025 2:33 PM SAUTE CHEF [facility] [address] [place] [id number] IMAGING STUDIES: XR ABD KUB DATE: 08/07/2025 7:49 AM COMPARISON STUDIES: February 24, 2025. CT abdomen of 01/05/2024 CLINICAL HISTORY: UROLITHIASIS . Additional history FINDINGS: Grossly normal gas pattern without obstruction. No intra-abdominal mass. Moderate stool in colon may be due to constipation. Calcifications noted overlying both kidneys. Relatively stable since prior exam. No new distinct calculi. Exam is limited due to overlying bowel. 8.3 mm calculus in lower pole right kidney.. Stable 2-3 calculi within the mid to lower pole left kidney. Largest in the lower pole measuring 8.1 mm. Lung bases are clear. Degenerative change in lumbar spine. . Phleboliths in the pelvis are similar. Right hemipelvic calcified right ovarian cyst as noted on prior CT Procedure Note Frank Rouse MD - 08/07/2025 [facility] [address] [place] [id number] IMAGING STUDIES: XR ABD KUB DATE: 08/07/2025 7:49 AM COMPARISON STUDIES: February 24, 2025. CT abdomen of 01/05/2024 CLINICAL HISTORY: UROLITHIASIS . Additional history FINDINGS: Grossly normal gas pattern without obstruction. No intra-abdominal mass.Moderate stool in colon may be due to constipation. Calcifications noted overlying both kidneys. Relatively stable since priorexam. No new distinct calculi. Exam is limited due to overlying bowel. 8.3 mm calculus in lower pole right kidney.. Stable 2-3 calculi within the mid to lower pole left kidney. Largest inthe lower pole measuring 8.1 mm. Lung bases are clear. Degenerative change in lumbar spine. . Phleboliths in the pelvis are similar. Right hemipelvic calcified rightovarian cyst as noted on prior CT IMPRESSION: Bilateral renal calculi. Similar to prior exam. No gross new calculi. Moderate stool in colon may be due to constipation Ordered By: ALONSO COLBY Interpreted By: Kaiser Rouse, 08/07/2025 9:29 AM us Alonso Colby MD GENERAL IMAGING Final R esult * USV MALICK DUPLEX LOW EXT LT (07/08/2025 1:28 PM CDT) Anatomical Region Laterality Modality Ultrasound 07/08/2025 1:37 PM CDT Impressions 07/08/2025 1:38 PM CDT IMPRESSION: No sonographic evidence of deep venous thrombosis of the left lower extremity. Ordered By: JACINTA DEL ROSARIO Interpreted By: Dez Schwartz, 07/08/2025 1:37 PM Narrative 07/08/2025 1:38 [place] [address] EXAMINATION: USV MALICK DUPLEX LOW EXT LT INDICATIONS: Other specified soft tissue disorders COMPARISON: NONE TECHNIQUE B-mode sonographic evaluation of the left lower extremity deep venous system with color and spectral Doppler. FINDINGS: Normal color Doppler venous flow and vessel wall coaptation on graded compression is demonstrated within the visualized portions of the common femoral, femoral, popliteal, posterior tibial, and peroneal veins. No visualized intraluminal thrombus. Respiratory variation and augmentation are present on spectral Doppler. Normal color Doppler flow, vessel wall coaptation, respiratory variation, and augmentation within the contralateral right common femoral vein. Procedure Note Dez Schwartz MD - 07/08/2025 [place] [address] EXAMINATION: USV MALICK DUPLEX LOW EXT LT INDICATIONS: Other specified soft tissue disorders COMPARISON: NONE TECHNIQUE B-mode sonographic evaluation of the left lower extremity deepvenous system with color and spectral Doppler. FINDINGS: Normal color Doppler venous flow and vessel wall coaptation on gradedcompression is demonstrated within the visualized portions of the commonfemoral, femoral, popliteal, posterior tibial, and peroneal veins. No visualized intraluminal thrombus. Respiratory variation and augmentation are present on spectral Doppler. Normal color Doppler flow, vessel wall coaptation, respiratory variation,and augmentation within the contralateral right common femoral vein. IMPRESSION: No sonographic evidence of deep venous thrombosis of the leftlower extremity. Ordered By: JACINTA DEL ROSARIO Interpreted By: Dez Schwartz, 07/08/2025 1:37 PM us Jacinta Del Rosario CRIMINAL RESEARCHER US VASC Final Result * (ABNORMAL) BASIC METABOLIC PANEL (06/30/2025 12:26 PM CDT) [facility] GLUCOSE 101(H) 70 - 99 MG/DL 06/30/2025 1:27 PM CDT [facility] BUN 14 7 - 18 MG/DL 06/30/2025 1:27 PM CDT [facility] CREATININE S/P/B 0.69 0.50 - 1.20 MG/DL 06/30/2025 1:27 PM CDT [facility] SODIUM S/P/B 143 136 - 145 MMOL/L 06/30/2025 1:27 PM CDT [facility] POTASSIUM S/P/B 4.3 3.5 - 5.1 MMOL/L 06/30/2025 1:27 PM CDT [facility] CHLORIDE S/P/B 105 100 - 108 MMOL/L 06/30/2025 1:27 PM CDT [facility] CO2 27.4 21.0 - 32.0 MMOL/L 06/30/2025 1:27 PM CDT [facility] CALCIUM S/P/B 9.0 8.5 - 10.1 MG/DL 06/30/2025 1:27 PM CDT [facility] ANION GAP 10.6 5.0 - 15.0 MMOL/L 06/30/2025 1:27 PM CDT [facility] BUN CREATININE RATIO 20.3 6 - 26 06/30/2025 1:27 PM CDT [facility] GFR ESTIMATE >90 >90 ML/MIN/1.7 3 M2 06/30/2025 1:27 PM CDT [facility] Comment: NOTE: eGFR is not calculated for patients <18 years of age. This is an estimated GFR calculation using the new CKD EPI creatinine equation without race and so does not require a correction factor for race. This estimated GFR should not be used for calculating drug doses. 06/30/2025 12:2 6 PM CDT Jacinta Del Rosario CRIMINAL RESEARCHER LABORATORY Final Result [facility] [address] [place] [address], [place] * MG SCREENING W ARTEM ROSARIO DIGI (01/29/2023 10:00 AM CDT) Anatomical Region Laterality Modality Breast Bilateral Computed Tomogra phy, Other 01/29/2023 12:0 6 PM CDT Narrative 01/29/2023 12:11 PM CDT IMAGING STUDIES: Bilateral screening mammograms with computer-aided detection with 2-D and 3-D imaging. Tomosynthesis. DATE: 01/29/2023 9:39 AM HISTORY: screening mammogram . COMPARISON: 07/27/2010.. 03/17/2017 TISSUE TYPE: The breast tissue is almost entirely fatty. FINDINGS: 1. Fatty fibroglandular tissue pattern is present. Benign calcifications 2. No malignant microcalfcifications, new dominant masses, or architectural distortion. Benign lymph node in upper outer quadrant of the right breast. 3. No skin thickening or nipple retraction. Axillary regions are within normal limits. IMPRESSION: 1. No mammographic evidence of malignancy. 2. Assessment: ACR BI-RADS 2 - BENIGN FINDING(S) 3 .Routine Screening Bilateral MQSA BI-RADS Categories: Category 0 - needs additional imaging evaluation. Category 1 - negative. Category 2 - benign findings. Category 3 - probably benign findings, but short interval follow-up is recommended. Category 4 - suspicious abnormality and biopsy should be considered though the lesion may well be benign. Category 5 - highly suggestive of malignancy and appropriate action should be taken. Category 6 - known biopsy-proven malignancy A) A negative report should not delay a biopsy if a dominant or clinically suspicious mass is present. B) Adenosis and dense breasts may obscure an underlying neoplasm. C) Study interpreted with computer aided detection. Ordered By: JACINTA DEL ROSARIO Interpreted By: Kaiser Rouse, 01/29/2023 12:06 PM Jacinta Del Rosario CRIMINAL RESEARCHER MAMMO Final Result * COLONOSCOPY (07/26/2015) us Documents Scanned SCANNING Final Result Performing Organization Address City/State/[facility] Co nm Phone Number [facility] [place] from Last 3 Months or Most Recently Relevant to Health Maintenance Insurance [facility] Advance Directives * Full Code (Latest Code Status on File) Date Activated Date Inactivated Comments 12/07/2020 2:35 PM 12/07/2020 5:29 PM * Full Code Date Activated Date Inactivated Comments 12/24/2018 5:24 PM 12/26/2018 3:45 PM * Full Code Date Activated Date Inactivated Comments 11/12/2018 4:26 PM 11/14/2018 1:03 PM Care Teams Air Pollution Control Engineer Relationship Specialty Start Date End Date Jacinta Del Rosario FNP PCP - General Nurse Practitioner Family 07/14/19 Gaurav Arango MD ORTHOPAEDIC SURGERY 12/19/18 Mauricio Wood MD [address] [address] Consulting Physician CARDIOVASCULAR DISEASE 01/05/22
--- OUTSIDE RECORDS SUMMARY | 2025-09-29 01:16 | XMS_ITS | Encounter Summary ---
Author Organization [facility] Address [facility] [place] [address] Care Team Providers Care Screw Machine Adjuster Automatic Name Role Phone Gaurav Arango MD Unavailable [phone] Jacinta Del Rosario Primary Care Provider [phone] Mauricio Wood MD Unavailable [phone] Encounter Details Date Type Department Care Team (Late st Contact Info) Description 12/01/2021 MyCtwidoxt Message Enc [facility] Orthopedic & Sports Medicine - [place] [address] [place] [address] Adolfo Nichole MD [address] [address] [place] [address] Physical Therapy Social History Tobacco Use Types Packs/Day Years Used Date Smoking Tobacco: Never Smokeless Tobacco: Never 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 less than 1 drink a week PHQ-2 Answer Date Recorded PHQ-2 Score - If the patient scores above 3, please move on to questions 3-9 0 11/15/2021 Comments No Sex and Gender Information Value Date Recorded Sex Assigned at Female 10/14/2024 3:51 PM BRIM BLOCKER Legal Sex Female 5:51 PM CDT Gender Identity Female 09/23/2021 9:05 AM BRIM BLOCKER Sexual Orientation Straight 09/23/2021 9: 05 AM BRIM BLOCKER COVID-19 Exposure Response Date Recorded In the last 10 days, have yo u been in contact with someone who was confirmed or suspected to have Coronavirus/COVID-19? No / Unsure 12/02/2021 4:12 PM BRIM BLOCKER documented as of this encounter Functional Status [...] st Contact Info) Description 11/27/2025 3:30 PM BRIM BLOCKER Appointment [address] [place] [address] Mauricio Wood MD [facility] [address] [place] [address] 12/03/2025 2:30 PM BRIM BLOCKER Office Visit [facility] [address] [place] [phone] Miryam Pelayo, MACHINE PACKAGING TECHNICIAN [address] [place] [id number] [place] [address] documented as of this encounter Visit Diagnoses Not on filedocumented in this encounter Additional Health Concerns Infection Onset Date Last Indicated Resolved Time COVID-19 Rule Out 08/28/2022 08/28/2022 08/28/2022 10:13 AM BRIM BLOCKER COVID-19 Rule Out 06/28/2023 06/28/2023 06/28/2023 9:17 AM CDT COVID-19 Rule Out 09/04/2024 09/04/2024 09/04/2024 12:21 PM BRIM BLOCKER COVID-19 Rule Out 10/27/2024 10/27/2024 10/27/2024 10:34 AM BRIM BLOCKER COVID-19 Rule Out 11/20/2024 11/20/2024 11/20/2024 9:48 AM BRIM BLOCKER Respiratory Rule Out 01/28/2025 01/28/2025 025 11:41 AM CDT Respiratory Rule Out 08/24/2025 08/24/2025 025 12:21 PM BRIM BLOCKER Assessment Noted Time PHQ-9 Depression Total Score: 0 11/15/19 22 8:46 AM BRIM BLOCKER documented as of this encounter Care Teams Screw Machine Adjuster Automatic Relationship Specialty Start Date End Date Jacinta Del Rosario FNP PCP - General Nurse Practitioner Family 07/14/19 Gaurav Arango MD ORTHOPAEDIC SURGERY 12/19/18 Mauricio Wood MD [facility] [address] [place] [address] Consulting Physician CARDIOVASCULAR DISEASE 01/05/22 documented as of this encounter
--- NOTE | 2025-09-29 07:15 | WPDHPUPDATE1 ---
History and Physical Update Update Date/Time: 09/29/25 07:15 History and Physical has been reviewed, including an updated exam of the patient. There are NO changes in the patient's condition. Risks, benefits, and alternatives have been discussed and questions answered. Patient agrees to proceed with procedure.
--- NOTE | 2025-09-29 07:15 | PM.HPGS ---
History of Present Illness History of Present Illness Consent: Risks, benefits, and alternatives have been discussed and questions answered. Patient agrees to proceed with procedure. Chief complaint: calculus of kidney Narrative: Paz Engle is a 60 year old female with history of urolithiasis who presents today for endoscopic management of large stone burden in her kidneys. She is s/p placement of bilateral ureteral stents on 09/08/2025. She denies any changes past her baseline and is ready for the procedure today. Review of Systems Review of Systems: Constitutional: No fevers or chills Eyes: No changes in vision HENT: No hearing loss Cardiovascular: No chest pain or palpitations Respiratory: No shortness of breath, cough, wheezing GI: No abdominal pain, nausea, or vomiting : No dysuria or difficulty urinating Heme: No easy bruising or bleeding Skin: No rash or itching MSK: No myalgias or joint pain Psych: No hallucinations Neuro: No lateralized numbness or tingling PMFSH Past Medical History Medical History (Updated 09/08/25 @ 09:10 by Shady Colby MD) Hypertension AAA (abdominal aortic aneurysm) Surgical History Surgical History (Updated 09/08/25 @ 08:30 by Mamadou Lance DO) History of hysterectomy History of total bilateral knee replacement Family History Family History (Updated 07/10/16 @ 15:16 by DOCTOR UNKNOWN) Sibling Family history of pancreatic cancer Father Family history of lung cancer Social History Social History Smoking status: Never smoker Alcohol intake: current Alcohol use details: VERY RARE Substance use: never Substance use type: does not use Living arrangements: with family Spiritual care concerns: No Meds Home Medications and Allergies Home Medications ?Medication ?Instructions ?Recorded ?Confirmed ?Type lisinopril 10 mg tablet 5 mg PO DAILY 01/08/24 09/22/25 History oxybutynin chloride 5 mg 5 mg PO DAILY 01/08/24 09/22/25 History tablet,extended release 24 hr hyoscyamine sulfate 0.125 mg 0.125 mg sublingual QID #30 tabs 09/08/25 09/22/25 Rx sublingual tablet phenazopyridine 100 mg tablet 100 mg PO TID PRN pain 3 days #9 09/08/25 09/22/25 Rx (Pyridium) tabs tamsulosin 0.4 mg capsule 0.4 mg PO HS #30 caps 09/08/25 09/22/25 Rx Allergies Allergy/AdvReac Type Severity Reaction Status Date / Time hydrocodone AdvReac Nausea Verified 09/22/25 08:20 oxycodone AdvReac Nausea Verified 09/22/25 08:20 Exam Narrative: General: Alert, no acute distress Head: Normocephalic, atraumatic Eyes: Extraocular movements intact Neck: No JVD, trachea midline Respiratory: Symmetric chest rise, nonlabored breathing on room air CV: Normal rate, adequate peripheral perfusion Abdomen: Soft, nontender, nondistended Skin: Warm/dry Extremities: No peripheral edema, no cyanosis Neuro: No focal deficits Psych: Answers questions appropriately, appropriate mood Assessment and Plan Assessment and plan (1) Nephrolithiasis: Code(s): N20.0 - Calculus of kidney Status: Acute Plan 60yF with bilateral renal stones s/p placement of bilateral ureteral stents on 09/08/2025 - To OR for cystoscopy, bilateral RPG, bilateral ureteroscopy, laser lithotripsy with CVAC, and bilateral ureteral stent exchange - The risks, benefits, alternatives were reviewed with the patient; she is amenable to proceed. - Anticipate discharge home thereafter
--- NOTE | 2025-09-29 08:24 | WPDANESEPPF ---
Anes - Initial Pre Proc Eval Procedure: Operation Date: 09/29/25 10:00 Proposed Procedures p Cystoscopy, Bilateral Retrograde Pyelogram, Bilateral Ureteroscopy, Laser Lithotripsy, Bilateral Ureteral Stent Exchange - Shady Colby MD Date/Time: 09/29/25 08:24 Surgeon: Shady Colby MD Pre Op Diagnosis: calculus of kidney Patient Data Age: 60 Gender: F Height: 1.63 m Weight: 102.06 kg Allergies Allergy/AdvReac Type Severity Reaction Status Date / Time hydrocodone AdvReac Nausea Verified 09/22/25 08:20 oxycodone AdvReac Nausea Verified 09/22/25 08:20 Home Medications ?Medication ?Instructions ?Recorded ?Confirmed ?Type lisinopril 10 mg tablet 5 mg PO DAILY 01/08/24 09/22/25 History oxybutynin chloride 5 mg 5 mg PO DAILY 01/08/24 09/22/25 History tablet,extended release 24 hr hyoscyamine sulfate 0.125 mg 0.125 mg sublingual QID #30 tabs 09/08/25 09/22/25 Rx sublingual tablet phenazopyridine 100 mg tablet 100 mg PO TID PRN pain 3 days #9 09/08/25 09/22/25 Rx (Pyridium) tabs tamsulosin 0.4 mg capsule 0.4 mg PO HS #30 caps 09/08/25 09/22/25 Rx Patient hx anesthesia problems: none Family hx anesthesia problems: none Results Review: All pre-operative results and documents have been reviewed as part of the pre-operative evaluation. [facility] Past Medical History Medical History (Updated 09/08/25 @ 09:10 by Shady Colby MD) Hypertension AAA (abdominal aortic aneurysm) Surgical History Surgical History (Updated 09/08/25 @ 08:30 by Mamadou Lance DO) History of hysterectomy History of total bilateral knee replacement Family History Family History (Updated 07/10/16 @ 15:16 by DOCTOR UNKNOWN) Sibling Family history of pancreatic cancer Father Family history of lung cancer Social History Social History Smoking status: Never smoker Alcohol intake: current Alcohol use details: VERY RARE Substance use: never Substance use type: does not use Living arrangements: with family Spiritual care concerns: No Anes - Eval Final PreProcedure Day of Procedure 09/29/25 08:24 Patient weight: obese Heart: regular rate and rhythm Lungs: clear to auscultation Airway: Mallampati scale class II Neurological: alert and oriented Last oral intake: >/= 8 hours ASA classification: III Emergent: no Anesthetic plan: proceed Anesthesia type and monitoring: general LMA and standard monitoring Results Review: All pre-operative results and documents have been reviewed as part of the pre-operative evaluation. Informed Consent: The patient's anesthetic plan and its attendant risks and benefits were discussed with the patient/family/POA. Questions were solicited and answers provided to the satisfaction of the patient/family/POA.
[2025-09-29] MEDS: ceFAZolin 2 GM in SODIUM CHLORIDE 0.9% IV 50 ML 100 ML IVPB (10:39)
--- NOTE | 2025-09-29 11:57 | S_PTH ---
PATIENT: Paz Engle LOC: [facility] U#:[id number] AGE/SX: 60/F ROOM: RE09/29/[address]: Shady Colby MD : 1965 BED: DIS: 09/29/2025 SPEC #: [id number] RECD: 09/29/25 13:55 STATUS: ROMANA REQ #: [id number] KATHRIN: 09/29/25 11:[address]: Shady Colby DEPT: [facility] Surgical RECD BY: Melanie Lin ENTERED: 09/29/25 13:56 SP TYPE: Surgical OTHR DR: Jacinta Del Rosario, SHUTTLE VENEERING SUPERVISOR-C Tissues: A - Stone Procedures: Gross Exam Level 1 Crystalline Analysis
[2025-09-29] MEDS: LACTATED RINGERS 1,000 ML 30 ML IV CONT ×2 (12:03)
--- NOTE | 2025-09-29 12:18 | W.PM.PROC2 ---
Procedure Note - Detailed Date of Procedure 09/29/25 Pre-op Diagnosis calculus of kidney Post-op Diagnosis Same Procedure Performed 1. Cystoscopy 2. Bilateral retrograde pyelogram with intraoperative interpretation 3. Bilateral ureteroscopy, laser lithotripsy, with irrigation/aspiration of stone fragments 4. Bilateral ureteral stent exchange Surgeon Shady Colby MD Anesthesia General Findings 1. Patient noted to have a cystocele with otherwise orthotopic ureteral orifices bilaterally with appropriately positioned bilateral ureteral stents. There were no suspicious lesions, tumors, active bleeding, or stones in the lower urinary tract. 2. Left renal endoscopy revealed approximately 1 cm total stone burden which was successfully treated with CVAC 3. Left retrograde pyelogram using a 50 50 mixture of contrast and saline performed after stone treatment showed no hydroureteronephrosis, filling defects, or contrast extravasation. 4. Right renal endoscopy revealed approximately 2 cm total stone burden which was successfully treated with CVAC 5. Right retrograde pyelogram using a 50 50 mixture of contrast and saline performed after stone treatment showed no hydroureteronephrosis, filling defects, or contrast extravasation. 6. Successful bilateral ureteral stent exchange without strings attached Description of Procedure Procedures Performed: 1. Cystoscopy 2. Bilateral retrograde pyelogram with intraoperative interpretation 3. Bilateral ureteroscopy, laser lithotripsy, with irrigation/aspiration of stone fragments 4. Bilateral ureteral stent exchange Findings: 1. All upper tract stones dusted 2. Stents placed in appropriate position Details of procedure: The patient was brought back to the operating room. They were prepped, draped, and padded per protocol. Pre-operative IV antibiotics were confirmed to have been administered. A formal time out was performed to confirm the correct patient, site, laterality, and procedure and all were in agreement to proceed. The bladder was entered transurethrally with the rigid cystoscope. Pancystoscopy was performed and no suspicious intravesical tumors, lesions, stones, active bleeding were noted. The bladder itself was normal. A sensor wire was advanced up the left ureter alongside the existing stent into the kidney. The cystoscope was removed and the Sensor wire was secured to the drapes with a hemostat. The cystoscope was reintroduced transurethrally into the bladder and a second safety Glidewire was advanced up the left ureter and into the kidney. The cystoscope was removed and a ureteral access sheath was advanced over the Glidewire under direct fluoroscopic guidance to the level of the proximal ureter. A single use CVAC flexible ureteroscope was advanced through the ureteral access sheath and into the kidney. A holmium laser fiber was used to dust/fragment/popcorn the stones until there was no significant stone remaining. The full collecting system was then surveyed with the single use CVAC ureteroscope. Exhaustive steerable vacuum aspiration was performed in each calyx and the renal pelvis using continuous fluid irrigation, increased fluid flow to mobilize stones, and intermittent vacuum aspiration. Fluid outflow was monitored to confirm effluent contained stone fragments. Upon completion of vacuum aspiration of the primary stone locations, the full collecting system was navigated and irrigation/vacuum continued to collect fragments moving through the collecting system. This was performed until there were no residual sizeable visible fragments. Next, a left-sided retrograde pyelogram was performed through the CVAC scope positioned in the renal pelvis in order to delineate the collecting system in anticipation of stent placement; please see above for intraoperative retrograde pyelogram findings. The CVAC scope was then backed down the ureter while simultaneously removing the access sheath and the ureter was then inspected on the way out and there was no significant trauma noted. With the access sheath and CVAC ureteroscope removed, the cystoscope was then backloaded onto the Sensor wire and advanced transurethrally into the bladder with attention drawn to the left ureteral orifice. Over top of the wire, a 6 [place] x 24 cm JJ stent was then advanced over the wire and the pusher was used to deploy the stent in place. A good proximal curl was noted in the left kidney under fluoroscopy and a good distal curl was noted in the bladder under both direct cystoscopic and fluoroscopic vision. Next, I performed right sided ureteroscopy, laser lithotripsy with irrigation/aspiration of stone fragments using CVAC and right retrograde pyelogram in the exact same fashion as the left hand side. I also exchanged the patient's right ureteral stent in the exact same fashion as the left hand side. The patient's bladder was then drained and the cystoscope was removed, essentially concluding the case. At the conclusion of the case all sponge, instrument, and sharp counts were correct x2. The patient was awoken from anesthesia and taken to the recovery unit in stable condition. The patient tolerated the procedure well and there were no immediate complications noted. Disposition: The patient will be monitored in the PACU and discharge home was clearing PACU protocol. She will follow up in about 1 week for office cystoscopy and bilateral ureteral stent removal. The patient's was provided with an update following the surgery all questions were answered to his satisfaction at the conclusion of our discussion.
[2025-09-29] MEDS: fentaNYL CITRATE INJ (*CRX) 100 MCG/2 ML VIAL 25 MCG IV PUSH ×4 (12:45→12:57)
[2025-09-29] MEDS: KETOROLAC 15 MG/ML VIAL (*BKC) IV PUSH (13:37)
== END 2025-09-29 14:18 | disposition home or self-care (01) ==
PROVIDERS: PCP Nurse Practitioner; Visit Provider Urology
PROC: (CPT 52352; principal; 2025-09-29 10:00)
DX: N20.0 Calculus of kidney (principal)
CPT/HCPCS: C9761; 36415; 74420; 82365; 88300; J0690; C1747; C1758; C1769; C2617; J1100; J1885; J2405; J2704; J3010; J7120; Q9966